=== PATIENT | female | born 1940 | race Caucasian/White ===

== ENCOUNTER → 2023-06-20 10:23 | Outpatient (CLI) | payer OTHER, MEDICARE, SELFPAY ==
[2023-06-20 12:06] LABS: Alanine Aminotransferase 38 IU/L (<35); Albumin 3.5 g/dL (3.5-5.0); Albumin Globulin Ratio 0.9 (1.0-2.8); Alkaline Phosphatase 90 U/L (38-126); Aspartate Aminotransferase 46 IU/L (14-36); BUN Creatinine Ratio 22.7 (6-22); Bilirubin Total 0.9 mg/dL (0.2-1.3); Blood Urea Nitrogen 17 mg/dL (7-17); Calcium 9.1 mg/dL (8.4-10.2); Carbon Dioxide 33 mmol/L (22-32); Chloride 99 mmol/L (98-107); Estimated Glomerular Filt Rate > 60 mL/min (>60); Globulin 3.7 g/dL (1.7-4.1); Glucose 107 mg/dL (80-110); HEMOLYSIS < 15 (0-50); Magnesium 1.8 mg/dL (1.6-2.3); Potassium 3.7 mmol/L (3.4-5.1); Sodium 136 mmol/L (137-145); Total Protein 7.2 g/dL (6.3-8.2)
[2023-06-20 12:23] LABS: Free T3, Triiodothyronine Free 1.73 pg/mL (2.77-5.27); Free T4, Direct Thyroxine 0.95 ng/dL (0.78-2.19)
[2023-06-20 12:37] LABS: Thyroid Stimulating Hormone 82.5 uIU/mL (0.47-4.68)
== END ==
PROVIDERS: PCP Nurse Practitioner; Referring Provider Nurse Practitioner; Visit Provider Nurse Practitioner
DX: E03.9 Hypothyroidism, unspecified (principal); I48.91 Unspecified atrial fibrillation; R00.2 Palpitations
CPT/HCPCS: 36415; 80053; 83735; 84439; 84443; 84481

== ENCOUNTER → 2023-08-18 07:50 | Outpatient (CLI) | payer MEDICARE, SELFPAY ==
[2023-08-18 09:14] LABS: Alanine Aminotransferase 17 IU/L (<35); Albumin 4.1 g/dL (3.5-5.0); Albumin Globulin Ratio 1.3 (1.0-2.8); Alkaline Phosphatase 69 U/L (38-126); Aspartate Aminotransferase 26 IU/L (14-36); BUN Creatinine Ratio 26.2 (6-22); Blood Urea Nitrogen 17 mg/dL (7-17); Calcium 9.6 mg/dL (8.4-10.2); Carbon Dioxide 32 mmol/L (22-32); Chloride 102 mmol/L (98-107); Estimated Glomerular Filt Rate > 60 mL/min (>60); Globulin 3.2 g/dL (1.7-4.1); Glucose 94 mg/dL (80-110); Potassium 3.6 mmol/L (3.4-5.1); Sodium 140 mmol/L (137-145); Total Protein 7.3 g/dL (6.3-8.2)
[2023-08-18 09:19] LABS: HEMOLYSIS < 15 (0-50)
[2023-08-18 09:43] LABS: Thyroid Stimulating Hormone 29.8 uIU/mL (0.47-4.68)
== END ==
LOC: LAB 07:50
PROVIDERS: PCP Nurse Practitioner; Referring Provider Nurse Practitioner; Visit Provider Nurse Practitioner
DX: E03.9 Hypothyroidism, unspecified (principal); I48.91 Unspecified atrial fibrillation; R79.89 Other specified abnormal findings of blood chemistry
CPT/HCPCS: 36415; 80053; 84443

== ENCOUNTER → 2023-10-12 11:29 | Outpatient (CLI) | payer MEDICARE, SELFPAY ==
[2023-10-12 13:39] LABS: Thyroid Stimulating Hormone 3.62 uIU/mL (0.47-4.68)
== END ==
PROVIDERS: PCP Nurse Practitioner; Referring Provider Nurse Practitioner; Visit Provider Nurse Practitioner
DX: E03.9 Hypothyroidism, unspecified (principal); I48.91 Unspecified atrial fibrillation
CPT/HCPCS: 36415; 84443

== ENCOUNTER → 2023-10-20 15:36 | Outpatient (CLI) | payer MEDICARE, SELFPAY ==
[2023-10-20 18:15] LABS: BUN Creatinine Ratio 35.4 (6-22); Blood Urea Nitrogen 23 mg/dL (7-17); Calcium 9.5 mg/dL (8.4-10.2); Carbon Dioxide 33 mmol/L (22-32); Chloride 105 mmol/L (98-107); Estimated Glomerular Filt Rate > 60 mL/min (>60); Glucose 93 mg/dL (80-110); HEMOLYSIS < 15 (0-50); Potassium 3.7 mmol/L (3.4-5.1); Sodium 140 mmol/L (137-145)
[2023-10-20 20:28] LABS: Digoxin 0.7 ng/mL (0.8-2.0)
== END ==
PROVIDERS: PCP Nurse Practitioner; Referring Provider Physician Assistant; Visit Provider Physician Assistant
DX: I48.91 Unspecified atrial fibrillation (principal)
CPT/HCPCS: 36415; 80048; 80162

== ENCOUNTER → 2023-11-30 14:00 | Outpatient (CLI) | payer MEDICARE, SELFPAY ==
--- NOTE | 2023-11-30 14:01 | DI.RAD.S_ITS ---
PROCEDURE: XR CERVICAL SPINE 2V OR 3V INDICATIONS: chronic right side pain TECHNIQUE: 3 view(s) of the cervical spine were acquired. COMPARISON: None. FINDINGS: Bones: No fractures or dislocations to the T1 level. The lateral masses of C1 appear intact on the odontoid view. No suspicious bony lesions. Reversal normal cervical lordosis. Disc space narrowing and hypertrophic facet joints in the mid cervical spine. Craniovertebral relationships are normal. Soft tissues: No prevertebral soft tissue swelling. 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 on 11/30/2023 at 19:18
== END ==
PROVIDERS: PCP Nurse Practitioner; Referring Provider Physician Assistant; Visit Provider Physician Assistant
DX: M50.20 Other cervical disc displacement, unspecified cervical region (principal); M47.812 Spondylosis without myelopathy or radiculopathy, cervical region
CPT/HCPCS: 72040

== ENCOUNTER → 2023-12-07 15:07 | Outpatient (CLI) | payer MEDICARE, SELFPAY ==
[2023-12-07 16:10] LABS: Alanine Aminotransferase 10 IU/L (<35); Albumin 3.9 g/dL (3.5-5.0); Albumin Globulin Ratio 1.3 (1.0-2.8); Alkaline Phosphatase 63 U/L (38-126); Aspartate Aminotransferase 22 IU/L (14-36); BUN Creatinine Ratio 26.9 (6-22); Bilirubin Total 0.7 mg/dL (0.2-1.3); Blood Urea Nitrogen 21 mg/dL (7-17); Calcium 8.6 mg/dL (8.4-10.2); Carbon Dioxide 28 mmol/L (22-32); Chloride 105 mmol/L (98-107); Estimated Glomerular Filt Rate > 60 mL/min (>60); Globulin 2.9 g/dL (1.7-4.1); Glucose 103 mg/dL (80-110); HEMOLYSIS < 15 (0-50); Potassium 3.9 mmol/L (3.4-5.1); Sodium 138 mmol/L (137-145); Total Protein 6.8 g/dL (6.3-8.2)
== END ==
PROVIDERS: PCP Nurse Practitioner; Referring Provider Physician Assistant; Visit Provider Physician Assistant
DX: R60.9 Edema, unspecified (principal); I10 Essential (primary) hypertension
CPT/HCPCS: 36415; 80053

== ENCOUNTER → 2024-01-05 14:55 | Outpatient (CLI) | payer MEDICARE, SELFPAY ==
--- NOTE | 2024-01-05 14:56 | DI.US.S_ITS ---
PROCEDURE: US ABDOMEN COMPLETE INDICATIONS: epigastric pain TECHNIQUE: Real-time scanning was performed of the abdominal and retroperitoneal organs, with image documentation. COMPARISON: None. FINDINGS: Liver: Liver is normal in size and homogeneous in echotexture. Gallbladder: No gallstones. No wall thickening. Biliary ducts: Intrahepatic bile ducts are non-dilated. Extrahepatic bile duct caliber measures 6 mm. Normal is 6-7 mm or less in diameter, or 10 mm or less post-cholecystectomy. Pancreas: Visualized portions of the pancreas are sonographically normal. Spleen: Spleen is normal in size and homogeneous in echotexture. Kidneys: Kidneys are normal in size and echotexture. Right kidney measures 10.6 cm long; left kidney measures 8.8 cm long. No hydronephrosis or nephrolithiasis. No solid masses. Aorta: Visualized aorta is normal in caliber at less than 3 cm. Iliacs: Proximal common iliac arteries are normal in caliber at less than 2.5 cm. IVC: Intrahepatic inferior vena cava is patent. Miscellaneous: Small pleural effusions. IMPRESSION: Small pleural effusions. Normal abdominal ultrasound otherwise. Dictated by: Zeus Barrett M.D. on 01/05/2024 at 16:40 Approved by: Zeus Barrett M.D. on 01/05/2024 at 16:41
== END ==
PROVIDERS: PCP Nurse Practitioner; Referring Provider Nurse Practitioner; Visit Provider Nurse Practitioner
DX: J90 Pleural effusion, not elsewhere classified (principal); R10.13 Epigastric pain
CPT/HCPCS: 76700

== ENCOUNTER → 2024-01-09 14:04 | Outpatient (CLI) | payer MEDICARE, SELFPAY ==
[2024-01-09 14:58] LABS: Add Manual Diff / Slide Review NO; Basophils Absolute Auto 100 /uL (0-100); Basophils Percent Auto 0.6 % (0-2); Eosinophils Absolute Auto 300 /uL (0-450); Eosinophils Percent Auto 2.8 % (2-4); Hematocrit 41.2 % (36-46); Hemoglobin 13.7 g/dL (12.0-16.0); Lymphocytes Absolute Auto 3400 /uL (1100-4500); Lymphocytes Percent Auto 32.3 % (25-40); Mean Corpuscular HGB Conc 33.2 % (30-36); Mean Corpuscular Hemoglobin 31.1 PG (26-34); Mean Corpuscular Volume 93.7 fL (80-100); Monocytes Absolute Auto 600 /uL (0-900); Monocytes Percent Auto 5.9 % (3-14); Neutrophils Absolute Auto 6200 /uL (1500-7000); Neutrophils Percent Auto 58.4 % (50-75); Platelet Count 259 X10^3/uL (150-400); Red Cell Distribution Width 13.7 % (11.6-14.8); White Blood Cell Count 10.6 X10^3/uL (4.5-11.0)
[2024-01-09 15:12] LABS: Alanine Aminotransferase 15 IU/L (<35); Albumin 4.3 g/dL (3.5-5.0); Albumin Globulin Ratio 1.3 (1.0-2.8); Alkaline Phosphatase 62 U/L (38-126); Aspartate Aminotransferase 25 IU/L (14-36); BUN Creatinine Ratio 28.2 (6-22); Bilirubin Total 1.3 mg/dL (0.2-1.3); Blood Urea Nitrogen 20 mg/dL (7-17); Calcium 9.5 mg/dL (8.4-10.2); Carbon Dioxide 33 mmol/L (22-32); Chloride 103 mmol/L (98-107); Estimated Glomerular Filt Rate > 60 mL/min (>60); Globulin 3.2 g/dL (1.7-4.1); Glucose 110 mg/dL (80-110); HEMOLYSIS < 15 (0-50); Potassium 4.2 mmol/L (3.4-5.1); Sodium 140 mmol/L (137-145); Total Protein 7.5 g/dL (6.3-8.2)
[2024-01-09 16:04] LABS: Thyroid Stimulating Hormone 3.75 uIU/mL (0.47-4.68)
== END ==
PROVIDERS: PCP Nurse Practitioner; Referring Provider Nurse Practitioner; Visit Provider Nurse Practitioner
DX: Z01.818 Encounter for other preprocedural examination (principal)
CPT/HCPCS: 36415; 80053; 84443; 85025

== ENCOUNTER 2024-01-28 18:43 | Emergency (ER) | payer MEDICARE, SELFPAY ==
[2024-01-28] VITALS (16 sets, daily range): BP systolic 155–197; BP diastolic 85–109; PULSE 69–90; RESP 16–33; TEMP 36.9; O2SAT 91–98
--- NOTE | 2024-01-28 18:43 | DI.CT.S_ITS ---
PROCEDURE: CT STROKE INDICATIONS: aphasia TECHNIQUE: Noncontrast 4.5 mm thick angled axial sections acquired from the foramen magnum to the vertex, with coronal reformats. For radiation dose reduction, the following was used: automated exposure control, adjustment of mA and/or kV according to patient size. COMPARISON: None. FINDINGS: Image quality: Diagnostic. CSF spaces: Basal cisterns are patent. No extra-axial fluid collections. The ventricles are symmetric in size and shape. Brain: No intracranial bleeds or masses. There is cerebral volume loss for age, with resultant ventricular and sulcal prominence. There are periventricular and deep white matter chronic small vessel ischemic changes. There is intracranial internal carotid artery atherosclerosis. Skull and face: Calvarium and visualized facial bones appear intact, without suspicious lesions. Sinuses: Visualized sinuses and mastoids are clear. IMPRESSION: 1. CT head without acute intracranial abnormalities or acute calvarial fractures. 2. Age-related senescent changes and sequela of chronic small vessel ischemic disease. Findings were discussed with Dr. Garcia at 7:10 p.m. This study fulfills neurological imaging criteria for inclusion or exclusion of acute stroke therapies based on available published neurological guidelines. Dictated by: Satinder Hernández M.D. on 01/28/2024 at 19:09 Approved by: Satinder Hernández M.D. on 01/28/2024 at 19:12
--- NOTE | 2024-01-28 18:43 | DI.CT.S_ITS ---
PROCEDURE: CT ANGIO HEAD AND NECK INDICATIONS: aphasia TECHNIQUE: After the administration of intravenous contrast, 1 mm thick sections acquired from the aortic arch through the [place]. 3-dimensional rlxnozp-ljaisqlbh-rbvguxnqwl (MIP) and/or volume rendering reformats were acquired of the central intracranial vasculature and neck separately. For radiation dose reduction, the following was used: automated exposure control, adjustment of mA and/or kV according to patient size. COMPARISON: None. FINDINGS: Image quality: Diagnostic. BRAIN: CSF spaces: Ventricles are normal in size and shape. Basal cisterns are patent. No extra-axial fluid collections. Brain: No midline shift. No intracranial masses. No suspicious enhancement. Garcia-white matter interface appears intact. Skull and face: Calvarium and facial bones appear intact, without suspicious lesions. Orbits appear normal. Sinuses: Sinuses and mastoids are clear. HEAD CT ANGIOGRAPHY: Anterior circulation: There are atherosclerotic calcifications of the intracranial segments of the internal carotid arteries. Intracranial internal carotid arteries appear patent without high-grade stenosis. There is flow/opacification within the paired anterior cerebral arteries. There is opacification within the middle cerebral arteries. The anterior communicating artery is seen. No aneurysms are seen. No occlusion. Posterior circulation: Atherosclerosis. Visualized portions of the vertebral arteries are patent and join to form a normal appearing basilar artery. No evidence for high-grade stenosis. No occlusions. There is opacification of the posterior cerebral arteries. No aneurysms are seen. NECK CT ANGIOGRAPHY: Carotid system: The great vessels demonstrate a conventional anatomy as they arise from the aortic arch. Atherosclerotic calcifications of the aortic arch are present. The origins of the common carotid arteries appear patent. The common carotid arteries appear patent throughout their visualized courses without high grade stenosis. Atherosclerotic calcifications at the carotid bifurcation. The left carotid bifurcation appears patent without high-grade stenosis. There is at least 75% stenosis at the origin of the right internal carotid artery. The remainder of the right internal carotid artery is patent. Symmetric enhancement of the internal carotid arteries. Posterior circulation: Atherosclerosis. Atherosclerotic calcifications at the origins of the vertebral arteries. The origins of the vertebral arteries both appear patent without hemodynamically significant stenosis. The more superior extracranial portions of both vertebral arteries also demonstrate normal courses and calibers. They join to form a normal appearing basilar artery. Soft tissues: Visualized neck soft tissues demonstrate no suspicious abnormalities. No suspicious adenopathy. Moderate right and trace left bilateral pleural effusion with associated compressive atelectasis. Bones: No suspicious bony lesions. No acute compression fractures. Moderate multilevel cervical spondylosis. IMPRESSION: 1. 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 No evidence for occlusion, dissection, or aneurysm. Remainder of the imaged intracranial and neck arterial vasculature appear patent without high-grade stenosis, occlusion, dissection, or aneurysm. 2. Atherosclerosis. 3. Moderate right and small left bilateral pleural effusions. If there is persistent or high clinical suspicion for acute cerebrovascular ischemia/stroke, more sensitive evaluation with brain MRI can be considered. Any quantitative measurements of stenosis were performed using NASCET criteria. Dictated by: Satinder Hernández M.D. on 01/28/2024 at 19:41 Approved by: Satinder Hernández M.D. on 01/28/2024 at 19:48
--- NOTE | 2024-01-28 18:52 | ED_ITS ---
HPI - General Adult General Chief complaint: Neuro Symptoms/Deficit Stated complaint: Diff. speaking Time Seen by Provider: 01/28/24 18:57 History of Present Illness HPI narrative: 83-year-old female with acute onset dysarthria within this last hour, per EMS apparently she was speaking on the phone with her [id number] when she suddenly started slurring her speech, this is approximately 1 hour ago 6:00 p.m. Harper time, per EMS she was unable to speak to them, but on arrival here she was able to speak with nursing, she takes Eliquis for atrial fibrillation. No injury or trauma or falls. No weakness or numbness to face arm or leg. Related Data Home Medications Medication Instructions Recorded Confirmed Rolaids or Tums See Rx Instructions .Route .COMPLEX 12/15/23 01/17/24 Previous Rx's Medication Instructions Recorded lactulose 20 gram/30 mL oral 20 g (30 mL) PO BID PRN 09/06/23 solution constipation #2,880 mL levothyroxine 75 mcg tablet 75 mcg PO DAILY #90 tabs 11/21/23 Imodium AD 2mg tabs See Rx Instructions .Route 12/15/23 .COMPLEX #1 cap Milk of Magnesia See Rx Instructions .Route 12/15/23 .COMPLEX #120 applic Mylanta Regular Strength See Rx Instructions .Route 12/15/23 .COMPLEX #120 applic Salon Pas Patches See Rx Instructions .Route 12/15/23 .COMPLEX #30 applic Tylenol 325mg See Rx Instructions .Route 12/15/23 .COMPLEX #100 caps furosemide 20 mg tablet 20 mg PO DAILY PRN fluid reten #30 12/15/23 tabs apixaban 2.5 mg tablet 2.5 mg PO BID #90 tabs 12/23/23 metoprolol succinate 200 mg 200 mg PO BID #90 tabs 12/23/23 tablet,extended release 24 hr Allergies Allergy/AdvReac Type Severity Reaction Status Date / Time ciprofloxacin [From Cipro] Allergy Severe cardiac Verified 01/17/24 08:39 arrest morphine Allergy Severe cardiac Verified 01/17/24 08:39 arrest lisinopril Allergy Mild Cough Verified 01/17/24 08:39 Review of Systems Review of Systems Narrative: per HPI Patient History Medical History (Updated 01/28/24 @ 20:40 by Manuel Garcia MD) Occipital neuralgia of right side Myofascial pain Neck Pain Cervical spondylosis Chronic anticoagulation History of benign spinal cord tumor Pacemaker Hypertension Hypothyroid Atrial fibrillation Social History Smoking Status: Former smoker Smoking Status: Former smoker Exam Narrative Exam Narrative: GENERAL: Well-developed patient, in mild distress. HEAD: Atraumatic. Normocephalic. EYES: Pupils equal round and reactive. Extraocular motions intact. No scleral icterus. No injection or drainage. ENT: Nose without bleeding, purulent drainage. Throat without erythema, tonsillar hypertrophy or exudate. Airway patent. NECK: Trachea midline. Non tender CARDIOVASCULAR: Regular rate and rhythm without murmurs, gallops, or rubs. RESPIRATORY: Clear to auscultation. Breath sounds equal bilaterally. No wheezes, rales, or rhonchi. GASTROINTESTINAL: Abdomen soft, non-tender, nondistended. EXTREMITIES: No edema or joint tenderness. BACK: Nontender without deformity or crepitance. No flank tenderness. NEURO: Severe dysarthria, looking around, pupils equal round reactive to light, able to participate with motor skills assessments, motor 5/5 upper extremities, motor 5/5 lower extremities, [id number] normal, [id number] normal, seems to have intact sensation to light touch. NIHSS =7, see separate score exam table. SKIN: No rash or erythema of visible areas Initial Vital Signs Initial Vital Signs: Vital Signs Pulse Rate 84 01/28/24 19:05 Pulse Oximetry 96 01/28/24 19:05 Scores NIH Stroke Scale Level of Conciousness: Alert, keenly responsive Open/close eyes, close hand: Performs both tasks correctly Best gaze horizontal: Normal Visual rodriguez: No visual loss Facial palsy: Partial paralysis, total or near total paralysis of lower face Left arm drift: No drift for full 10 sec Right arm drift: No drift for full 10 sec Left leg drift: No drift for full 5 sec Right leg drift: No drift for full 5 sec Limb ataxia: Absent Sensory on face/arms/legs: Normal, no sensory loss Best language: Mild to moderate, slurs some words Dysarthria: Mild to mod,some slurring Extinction or inattention: No abnormality Citation:: 1a=0, 1b=2, 1c=0, 2=0, 3=0, 4=1, 5a=0, 5b=0, 6a=0, 6b=0, 7=0, 8=0, 9=2, 10=2, 11=0. Total=7 Course Orders Ordered: ED Orders 01/28/24 20:45 COVID19 -Nasal RAPID Stat Vital Signs Vital signs: Vital Signs - 8 hr 01/28/24 21:01 01/28/24 21:02 01/28/24 21:02 Temperature Pulse Rate 90 87 Respiratory Rate 27 H 26 H Blood Pressure 172/101 H Pulse Oximetry 96 95 Oxygen Delivery Method 01/28/24 21:04 01/28/24 21:04 01/28/24 21:10 Temperature Pulse Rate 84 77 Respiratory Rate 16 21 Blood Pressure 169/102 H Pulse Oximetry 96 93 Oxygen Delivery Method 01/28/24 21:10 01/28/24 21:20 01/28/24 21:20 Temperature Pulse Rate 79 Respiratory Rate 19 Blood Pressure 167/98 H 157/95 H Pulse Oximetry 95 Oxygen Delivery Method 01/28/24 21:30 01/28/24 21:30 01/28/24 21:44 Temperature 98.5 F Pulse Rate 81 89 Respiratory Rate 20 18 Blood Pressure 162/97 H 167/104 H Pulse Oximetry 93 98 Oxygen Delivery Method Room Air Medical Decision Making Lab Data Lab results reviewed: Yes I reviewed the patient's lab results. 01/28/24 19:10 01/28/24 19:10 Labs: Lab Results 01/28/24 01/28/24 01/28/24 Range/Units 19:10 19:54 19:54 WBC 10.4 (4.5-11.0) X10^3/uL RBC 4.34 (4.0-5.2) X10^6/uL Hgb 13.5 (12.0-16.0) g/dL Hct 40.4 (36-46) % MCV 93.1 (80-100) fL MCH 31.2 (26-34) PG MCHC 33.5 (30-36) % RDW 13.0 (11.6-14.8) % Plt Count 175 (150-400) X10^3/uL Neut % (Auto) 57.0 (50-75) % Lymph % (Auto) 33.5 (25-40) % [place] % (Auto) 5.5 (3-14) % Eos % (Auto) 3.0 (2-4) % Baso % (Auto) 1.0 (0-2) % Neut # (Auto) 5900 (9010-2846) /uL Lymph # (Auto) 3500 (6754-8834) /uL [place] # (Auto) 600 (0-900) /uL Eos # (Auto) 300 (0-450) /uL Baso # (Auto) 100 (0-100) /uL PT 14.7 H (9.4-12.5) SECONDS INR 1.3 (0.9-1.3) APTT 34 (25.1-36.5) SECONDS Sodium 136 L (137-145) mmol/L Potassium 4.1 (3.4-5.1) mmol/L Chloride 103 (98-107) mmol/L Carbon Dioxide 23 (22-32) mmol/L BUN 18 H (7-17) mg/dL Creatinine 0.73 (0.52-1.04) mg/dL Estimated GFR > 60 (>60) mL/min BUN/Creatinine Ratio 24.7 H (6-22) Glucose 143 H (80-110) mg/dL Calcium 9.1 (8.4-10.2) mg/dL Total Bilirubin 1.1 (0.2-1.3) mg/dL AST 27 (14-36) IU/L ALT 20 (<35) IU/L Alkaline Phosphatase 73 (38-126) U/L Total Creatine Kinase 29 L (30-135) U/L Troponin I < 0.012 (0.01-0.034) ng/mL Total Protein 7.0 (6.3-8.2) g/dL Albumin 4.2 (3.5-5.0) g/dL Globulin 2.8 (1.7-4.1) g/dL Albumin/Globulin Ratio 1.5 (1.0-2.8) Urine Color Yellow Urine Appearance Clear Urine pH 6.0 Normal (4.5-8.0) Ur Specific Brady <=1.005 (1.000-1.035) Urine Protein Negative (Negative) Urine Glucose (UA) Negative (Negative) g/dL Urine Ketones Negative (NEGATIVE) Urine Occult Blood Trace-intact (Negative) Urine Nitrate Negative (Negative) Urine Bilirubin Negative (NEGATIVE) Urine Urobilinogen 0.2 (0.2) E.U./dL Ur Leukocyte Esterase Negative (NEGATIVE) Urine RBC 1-5/hpf (0-5/HPF) Urine WBC 0-1/hpf (0-5/HPF) Ur Squamous Epith Cells 0-1 /hpf (0-5/HPF) Urine Bacteria Occasional (0-1) (None) Ur Culture Indicated? Cult not indicated Vol Urine Centrifuged 10ml (spun) U Opiates 300ng/mL cut Negative (Negative) Ur Oxycodone Screen Negative (Negative) Urine Methadone Screen Negative (Negative) Ur Barbiturates Screen Negative (Negative) U Tricyclic Antidepress Negative (Negative) Ur Phencyclidine Scrn Negative (Negative) Ur Amphetamines Screen Negative (Negative) U Methamphetamines Scrn Negative (Negative) Ur MDMA Scrn (Ecstasy) Negative (Negative) U Benzodiazepines Scrn Negative (Negative) Urine Cocaine Screen Negative (Negative) U Marijuana (THC) Screen Negative (Negative) Urine Specific Brady Normal (Normal) Ethyl Alcohol < 10 ( - 10) mg/dL Ur Creatinine Normal (Normal) SARS-CoV-2 (PCR) (Negative) 01/28/24 Range/Units 20:45 WBC (4.5-11.0) X10^3/uL RBC (4.0-5.2) X10^6/uL Hgb (12.0-16.0) g/dL Hct (36-46) % MCV (80-100) fL MCH (26-34) PG MCHC (30-36) % RDW (11.6-14.8) % Plt Count (150-400) X10^3/uL Neut % (Auto) (50-75) % Lymph % (Auto) (25-40) % Licking % (Auto) (3-14) % Eos % (Auto) (2-4) % Baso % (Auto) (0-2) % Neut # (Auto) (9762-2815) /uL Lymph # (Auto) (8815-2142) /uL Licking # (Auto) (0-900) /uL Eos # (Auto) (0-450) /uL Baso # (Auto) (0-100) /uL PT (9.4-12.5) SECONDS INR (0.9-1.3) APTT (25.1-36.5) SECONDS Sodium (137-145) mmol/L Potassium (3.4-5.1) mmol/L Chloride (98-107) mmol/L Carbon Dioxide (22-32) mmol/L BUN (7-17) mg/dL Creatinine (0.52-1.04) mg/dL Estimated GFR (>60) mL/min BUN/Creatinine Ratio (6-22) Glucose (80-110) mg/dL Calcium (8.4-10.2) mg/dL Total Bilirubin (0.2-1.3) mg/dL AST (14-36) IU/L ALT (<35) IU/L Alkaline Phosphatase (38-126) U/L Total Creatine Kinase (30-135) U/L Troponin I (0.01-0.034) ng/mL Total Protein (6.3-8.2) g/dL Albumin (3.5-5.0) g/dL Globulin (1.7-4.1) g/dL Albumin/Globulin Ratio (1.0-2.8) Urine Color Urine Appearance Urine pH (4.5-8.0) Ur Specific Brady (1.000-1.035) Urine Protein (Negative) Urine Glucose (UA) (Negative) g/dL Urine Ketones (NEGATIVE) Urine Occult Blood (Negative) Urine Nitrate (Negative) Urine Bilirubin (NEGATIVE) Urine Urobilinogen (0.2) E.U./dL Ur Leukocyte Esterase (NEGATIVE) Urine RBC (0-5/HPF) Urine WBC (0-5/HPF) Ur Squamous Epith Cells (0-5/HPF) Urine Bacteria (None) Ur Culture Indicated? Vol Urine Centrifuged U Opiates 300ng/mL cut (Negative) Ur Oxycodone Screen (Negative) Urine Methadone Screen (Negative) Ur Barbiturates Screen (Negative) U Tricyclic Antidepress (Negative) Ur Phencyclidine Scrn (Negative) Ur Amphetamines Screen (Negative) U Methamphetamines Scrn (Negative) Ur MDMA Scrn (Ecstasy) (Negative) U Benzodiazepines Scrn (Negative) Urine Cocaine Screen (Negative) U Marijuana (THC) Screen (Negative) Urine Specific Brady (Normal) Ethyl Alcohol ( - 10) mg/dL Ur Creatinine (Normal) SARS-CoV-2 (PCR) Negative (Negative) Point of Care Testing Glucose POC 133 Urine Dip Bedside Urine Glucose Negative Bedside Urine Bilirubin - Negative Bedside Urine Ketone - Negative Urine Specific Brady 1.005 Bedside Urine Occult Blood - Negative Bedside Urine pH 6.0 Bedside Urine Protein - Negative Bedside Urine Urobilinogen - Negative Bedside Urine Nitrite - Negative Bedside Urine Leukocytes - Negative Esterase Point of care testing: Point of Care Testing Glucose POC 133 Urine Dip Bedside Urine Glucose Negative Bedside Urine Bilirubin - Negative Bedside Urine Ketone - Negative Urine Specific Brady 1.005 Bedside Urine Occult Blood - Negative Bedside Urine pH 6.0 Bedside Urine Protein - Negative Bedside Urine Urobilinogen - Negative Bedside Urine Nitrite - Negative Bedside Urine Leukocytes - Negative Esterase Imaging Data CT scan - head: Radiologist's Impression: [address] [address] [address] Scan Report Signed Patient: Radha Santiago MR#: [id number] : 1940 Acct:[id number] Age/Sex: 83 / F Date of Service: 01/28/24 Loc: ED Accession Number: [id number] Procedure: CT Stroke Ordering Provider: Manuel Garcia MD PROCEDURE: CT STROKE INDICATIONS: aphasia TECHNIQUE: Noncontrast 4.5 mm thick angled axial sections acquired from the foramen magnum to the vertex, with coronal reformats. For radiation dose reduction, the following was used: automated exposure control, adjustment of mA and/or kV according to patient size. COMPARISON: None. FINDINGS: Image quality: Diagnostic. CSF spaces: Basal cisterns are patent. No extra-axial fluid collections. The ventricles are symmetric in size and shape. Brain: No intracranial bleeds or masses. There is cerebral volume loss for age, with resultant ventricular and sulcal prominence. There are periventricular and deep white matter chronic small vessel ischemic changes. There is intracranial internal carotid artery atherosclerosis. Skull and face: Calvarium and visualized facial bones appear intact, without suspicious lesions. Sinuses: Visualized sinuses and mastoids are clear. IMPRESSION: 1. CT head without acute intracranial abnormalities or acute calvarial fractures. 2. Age-related senescent changes and sequela of chronic small vessel ischemic disease. Findings were discussed with Dr. Garcia at 7:10 p.m. This study fulfills neurological imaging criteria for inclusion or exclusion of acute stroke therapies based on available published neurological guidelines. Dictated by: Satinder Hernández M.D. on 01/28/2024 at 19:09 Approved by: Satinder Hernández M.D. on 01/28/2024 at 19:12 CTA Head and Neck: Radiologist's Impression: [address] [address] [address] Scan Report Signed Patient: Radha Santiago MR#: [id number] : 1940 Acct:[id number] Age/Sex: 83 / F Date of Service: 01/28/24 Loc: ED Accession Number: [id number] Procedure: CT Stroke Ordering Provider: Manuel Garcia MD PROCEDURE: CT STROKE INDICATIONS: aphasia TECHNIQUE: Noncontrast 4.5 mm thick angled axial sections acquired from the foramen magnum to the vertex, with coronal reformats. For radiation dose reduction, the following was used: automated exposure control, adjustment of mA and/or kV according to patient size. COMPARISON: None. FINDINGS: Image quality: Diagnostic. CSF spaces: Basal cisterns are patent. No extra-axial fluid collections. The ventricles are symmetric in size and shape. Brain: No intracranial bleeds or masses. There is cerebral volume loss for age, with resultant ventricular and sulcal prominence. There are periventricular and deep white matter chronic small vessel ischemic changes. There is intracranial internal carotid artery atherosclerosis. Skull and face: Calvarium and visualized facial bones appear intact, without suspicious lesions. Sinuses: Visualized sinuses and mastoids are clear. IMPRESSION: 1. CT head without acute intracranial abnormalities or acute calvarial fractures. 2. Age-related senescent changes and sequela of chronic small vessel ischemic disease. Findings were discussed with Dr. Garcia at 7:10 p.m. This study fulfills neurological imaging criteria for inclusion or exclusion of acute stroke therapies based on available published neurological guidelines. Dictated by: Satinder Hernández M.D. on 01/28/2024 at 19:09 Approved by: Satinder Hernández M.D. on 01/28/2024 at 19:12 CTA Head/Neck addendum: Radiologist's Impression: [address] [address] [address] Scan Report Signed Patient: Jaci Penn MR#: [id number] : 12/23/1935 Acct:[id number] Age/Sex: 88 / F Date of Service: 01/28/24 Loc: ED Accession Number: [id number] Procedure: CT angio chest abdomen pelvis Ordering Provider: Manuel Garcia MD PROCEDURE: CT ANGIO CHEST ABDOMEN PELVIS INDICATIONS: chest pain, flank pain, Ddimer positive TECHNIQUE: Precontrast 5 mm thick sections acquired from the lung apices to the iliac crests. After the administration of intravenous contrast, 2.5 mm thick sections again acquired from the lung apices to the iliac crests. Maximum intensity projection (MIP) oblique sagittal and coronal reformats were then acquired. For radiation dose reduction, the following was used: automated exposure control. COMPARISON: [facility], CT, CT ABDOMEN PELVIS W CON, 05/10/2023, 12:20. FINDINGS: Image quality: Diagnostic. AORTA: No aortic aneurysm. No acute aortic syndrome. CHEST: Lower Neck: No enlarged lymph nodes. Thyroid: There are bilateral thyroid nodules inferiorly, greater in size on the left than the right, of uncertain etiology and clinical significance. Axillae: No enlarged lymph nodes. Chest Wall: Unremarkable. Lungs and Pleura: No pneumothorax or pleural effusions. No consolidation or suspicious nodules. Heart: Heart size is normal. No pericardial effusion. Thoracic Vessels: Pulmonary arteries demonstrate normal size. Mediastinum and Nadja: No enlarged lymph nodes. Esophagus: No wall thickening. No hiatal hernia. ABDOMEN: Liver: No solid mass. Scattered previously present simple appearing hepatic cysts. Gallbladder: No radiopaque gallstones or wall thickening. Biliary ducts: No biliary dilation. Pancreas: No ductal dilation. Spleen: Size is within normal limits. Adrenal Glands: No adrenal nodules. Kidneys and Ureters: No hydronephrosis. No solid mass. No complex renal cystic lesion which requires follow up. There is a large exophytic left renal cortical cyst and several additional small cortical cysts. Stomach and Bowel: Normal colonic caliber, without significant wall thickening. Peritoneum: No abnormal intraperitoneal fluid. No free air. Ventral Wall: No hernia. Abdominal Nodes: No retroperitoneal or mesenteric adenopathy by size criteria. Vessels: Inferior vena cava is normal in size. PELVIS: Pelvic Organs: Unremarkable. Bladder: Unremarkable. Pelvic Nodes: No enlarged lymph nodes. Miscellaneous: No inguinal hernias are seen. Bones: Unremarkable. IMPRESSION: No arterial/aortic abnormality found beyond mild atherosclerotic calcific plaquing. Bilateral lower thyroid hypodensities larger on the left than right, relatively poorly visualized but likely representing solid nodules. Follow-up thyroid ultrasound is recommended. Through the chest abdomen and pelvis no acute disease is seen. No pulmonary embolus found during scanning through the chest. Dictated by: Yasir Augustin M.D. on 01/28/2024 at 20:28 Approved by: Yasir Augutsin M.D. on 01/28/2024 at 20:38 ECG Data Attestation: I personally reviewed and interpreted this ECG as follows: Interpretation: Normal sinus rhythm with rate of 76, no obvious ST segment elevation or depression changes. PVC noted. NV 188, QRS 80, QTC 416. MDM Narrative Medical decision making narrative: 83-year-old female with dysarthria acute onset a proximally 1 hour ago, arrival by EMS, glucose 130s in the field, initially not speaking, then able to speak, still quite slurred in her speech, able to articulate that she does take Eliquis anticoagulation for atrial fibrillation, no injuries or trauma. CT head noncontrast study ordered, along with CT angiogram head and neck vessels on arrival. EKG and labs pending. Keep NPO for now. 1914, phone call from Dr. [facility], verbal report CT head noncontrast study negative for acute changes. He has yet to read the CT angio head/neck studies. Patient takes Eliquis anticoagulation, not a thrombolytic candidate, however she could be interventional candidate, we will consult with Neurology as she is improving some but still quite dysarthric. 1919, case discussed with [facility] Dr. Lopez, who will review images, and who will consult. Patient confirms with yes his and knows that she is still taking the Eliquis medication, last dose was this morning, has not had any this afternoon/evening so far. CTA study shows 75% occlusion right ICA, see radiologist's report. 1949, phone call from Dr. Lopez of /[facility] Neurology, he and his attending have concerns about the Left M2 region, and he requests that I speak with the Radiology here. Relayed my score an IHSS 7, nursing gave score of 8 (nursing felt there was a more severe right-sided facial droop that I did) 2019, voicemail message left with Radiology, then call back from Radiology, case discussed again with Dr. Hernández, relayed Neurology concern about the left M2 region, he will further review. 2029, call back from [facility]/ Neurology Dr. Gonzalez, who reviewed images with neuroradiology at their facility, concern for left-sided occlusion, recommend transfer for possible thrombectomy. Patient informed, agrees with transfer 2036, call back from Dr. Lopez, accepts patient for transfer ED [facility], requests patient lay flat, requests normal saline at 75 cc/hour maintenance fluids. Keep NPO callback from Dr Hernández, agrees there is suspected occlusion along M2 distal segment 2039, family, here, pt accepted for transfer, dia send by air ambulance for more timely interfacility transfer given ongoing neuro symptoms Critical Care Time Critical Care Time Critical Care Time: Yes Total Critical Care Time: 45 Attestation: The high probability of a clinically significant, sudden or life threatening deterioration of the [cerebrovascular, cardio pulmonary, neurological] system(s) required my full and direct attention, intervention and personal management. The aggregate critical care time was [35] minutes. This time is in addition to time spent performing reported procedures but includes the following: [x] Data Review and interpretation [x] Patient assessment and monitoring of vital signs [x] Documentation [x] Medication orders and management Discharge Plan Departure Patient Disposition: [facility] Clinical Impression: Dysarthria, Stroke, Stenosis of right internal carotid artery, History of atrial fibrillation, Occlusion of left middle cerebral artery Prescriptions: No Action lactulose 20 gram/30 mL solution 20 g PO BID PRN (Reason: constipation) Qty: 2880 3RF Rx Instructions: Constipation levothyroxine 75 mcg tablet 75 mcg PO DAILY Qty: 90 3RF Rx Instructions: Due for TSH in 2-3 months metoprolol succinate 200 mg tablet extended release 24 hr 200 mg PO BID Qty: 90 3RF apixaban 2.5 mg tablet 2.5 mg PO BID Qty: 90 3RF furosemide 20 mg tablet 20 mg PO DAILY PRN (Reason: fluid reten) Qty: 30 0RF Rx Instructions: Use as needed for fluid retention Salon Pas Patches See Rx Instructions .ROUTE .COMPLEX Qty: 30 3RF Rx Instructions: Apply patch daily to most painful area x12 hours; Tylenol 325mg See Rx Instructions .ROUTE .COMPLEX Qty: 100 0RF Rx Instructions: Take 2 tabs by mouth every 4 hours as needed for fever over 100 degrees or for pain, not to exceed 6 tabs in 24 hours.; Imodium AD 2mg tabs See Rx Instructions .ROUTE .COMPLEX Qty: 1 0RF Rx Instructions: Take 2 caps by mouth initially then 1 cap after each loose stool until diarrhea is controlled, but not to exceed more than 4 caps in 24 hours; Mylanta Regular Strength See Rx Instructions .ROUTE .COMPLEX Qty: 120 0RF Rx Instructions: t tsp by mouth (20mL/cc) every 4 hours as needed for stomach upset not to exceed 24 tsp (120mL/cc) in 24 hours; Milk of Magnesia See Rx Instructions .ROUTE .COMPLEX Qty: 120 0RF Rx Instructions: Take 2 Tbs by mouth (30mL/cc) every day a needed for constipation NTE 2 Tbs (30mL/cc) in 24 hours. Encouraged a full glass (8oz) of liquid with each dose.; Rolaids or Tums See Rx Instructions .ROUTE .COMPLEX Rx Instructions: Take at onset of epigastric pain per package instructions as needed.; Referrals: Danyell Ledbetter ARNP [Primary Care Provider] -
[2024-01-28 19:20] LABS: Add Manual Diff / Slide Review NO; Basophils Absolute Auto 100 /uL (0-100); Eosinophils Absolute Auto 300 /uL (0-450); Hematocrit 40.4 % (36-46); Hemoglobin 13.5 g/dL (12.0-16.0); Lymphocytes Absolute Auto 3500 /uL (1100-4500); Lymphocytes Percent Auto 33.5 % (25-40); Mean Corpuscular HGB Conc 33.5 % (30-36); Mean Corpuscular Hemoglobin 31.2 PG (26-34); Mean Corpuscular Volume 93.1 fL (80-100); Monocytes Absolute Auto 600 /uL (0-900); Monocytes Percent Auto 5.5 % (3-14); Neutrophils Absolute Auto 5900 /uL (1500-7000); Platelet Count 175 X10^3/uL (150-400); Red Blood Cell Count 4.34 X10^6/uL (4.0-5.2); White Blood Cell Count 10.4 X10^3/uL (4.5-11.0)
[2024-01-28 19:27] LABS: INR 1.3 (0.9-1.3); Prothrombin Time 14.7 SECONDS (9.4-12.5)
[2024-01-28 19:29] LABS: PTT Partial Thromboplastin Tim 34 SECONDS (25.1-36.5)
[2024-01-28 19:32] LABS: Alanine Aminotransferase 20 IU/L (<35); Albumin 4.2 g/dL (3.5-5.0); Albumin Globulin Ratio 1.5 (1.0-2.8); Alkaline Phosphatase 73 U/L (38-126); Aspartate Aminotransferase 27 IU/L (14-36); BUN Creatinine Ratio 24.7 (6-22); Bilirubin Total 1.1 mg/dL (0.2-1.3); Blood Urea Nitrogen 18 mg/dL (7-17); Calcium 9.1 mg/dL (8.4-10.2); Carbon Dioxide 23 mmol/L (22-32); Chloride 103 mmol/L (98-107); Creatine Kinase 29 U/L (30-135); Estimated Glomerular Filt Rate > 60 mL/min (>60); Ethanol (ETOH) < 10 mg/dL; Globulin 2.8 g/dL (1.7-4.1); Glucose 143 mg/dL (80-110); HEMOLYSIS 16 (0-50); Potassium 4.1 mmol/L (3.4-5.1); Sodium 136 mmol/L (137-145)
--- NOTE | 2024-01-28 19:37 | EKG_ITS ---
[address] [address] Test Date: 2024-01-28 Pat Name: Radha Santiago Department: Room: Gender: Female Pastoral Worker: [facility] : 1940 Requested By: Order Number: [id number] Reading MD: Naveen Perla Measurements Intervals [place] Rate: 76 P: 82 ME: 188 QRS: -7 QRSD: 80 T: 117 QT: 370 QTc: 416 Interpretive Statements Sinus rhythm with occasional premature ventricular complexes Possible Anterior infarct , age undetermined T wave abnormality, consider lateral ischemia Electronically Signed On 01-29-2024 8:23:22 PDT by Naveen Perla
[2024-01-28 19:43] LABS: Troponin I < 0.012 ng/mL (0.01-0.034)
[2024-01-28 20:16] LABS: Appearance Urine UA CLEAR; Bilirubin Urine UA NEGATIVE (NEGATIVE); Color Urine UA YELLOW; Glucose Urine UA NEGATIVE (Negative); Ketones Urine UA NEGATIVE (NEGATIVE); Leukocyte Esterase Urine UA NEGATIVE (NEGATIVE); Nitrite Urine UA NEGATIVE (Negative); Occult Blood Urine UA TRACE-INTACT (Negative); Protein Urine UA NEGATIVE (Negative); Specific Gravity Urine UA <=1.005 (1.000-1.035); Urobilinogen Urine UA 0.2 E.U./dL (0.2)
[2024-01-28 20:24] LABS: Ur Creatinine Normal (Normal); Ur Specific Gravity Normal (Normal); Urine Amphetamines Negative (Negative); Urine Barbiturates Negative (Negative); Urine Benzodiazepines Negative (Negative); Urine Cocaine Negative (Negative); Urine MDMA Negative (Negative); Urine Methadone Negative (Negative); Urine Methamphetamines Negative (Negative); Urine Opiates Negative (Negative); Urine Oxycodone Negative (Negative); Urine Phencyclidine Negative (Negative); Urine THC Negative (Negative); Urine Tricyclic Antidepressant Negative (Negative); Urine pH Normal (Normal)
[2024-01-28 20:27] LABS: Bacteria Urine Occasional (0-1); Culture Indicated Urine Cult Not Indicated; RBC Urine 1-5/HPF (0-5/HPF); Squamous Epithelial Cell Urine 0-1 /HPF (0-5/HPF); Urine Volume 10mL (spun); WBC Urine 0-1/HPF (0-5/HPF)
--- NOTE | 2024-01-28 20:45 | PC.NURSE ---
Dr Abraham requesting staff to place pt flat in bed and start IVF NS at 75 mL/hr, Pt layed flat and fluids started.
[2024-01-28 21:07] LABS: COVID19 -Nasal RAPID Negative (Negative)
== END 2024-01-28 21:45 | disposition short-term general hospital (02) ==
PROVIDERS: Emergency Provider Emergency Medicine; PCP Nurse Practitioner
DX: I65.21 Occlusion and stenosis of right carotid artery (principal); I66.02 Occlusion and stenosis of left middle cerebral artery; I63.9 Cerebral infarction, unspecified; R47.1 Dysarthria and anarthria; R29.707 NIHSS score 7; R07.9 Chest pain, unspecified; R79.89 Other specified abnormal findings of blood chemistry; Z79.01 Long term (current) use of anticoagulants; Z86.79 Personal history of other diseases of the circulatory system
CPT/HCPCS: 36415; 70450; 70496; 70498; 80053; 80305; 80320; 81001; 81003; 82550; 82962; 84484; 85025; 85610; 85730; 87635; 93005; 99284; 99285; Q9967

== ENCOUNTER → 2024-04-20 12:46 | Outpatient (CLI) | payer MEDICARE, SELFPAY ==
--- NOTE | 2024-04-20 12:48 | DI.RAD.S_ITS ---
PROCEDURE: XR WRIST LT MIN 3V INDICATIONS: LEFT WRIST PAIN TECHNIQUE: 3 views of the wrist were acquired. COMPARISON: None. FINDINGS: Bones: There is diffuse osteopenia. Severe osteoarthritic changes are noted throughout wrist joints. No definite acute fracture or dislocation. No suspicious bony lesions. Soft tissues: Diffuse soft tissue swelling around wrist joint is seen. No suspicious soft tissue calcifications. 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 No gross acute fracture or dislocation. Diffuse wrist soft tissue swelling. Dictated by: Dung Chacon M.D. on 04/20/2024 at 13:08 Approved by: Dung Chacon M.D. on 04/20/2024 at 13:09
== END ==
PROVIDERS: PCP Registered Nurse Diabetes Educator; Referring Provider Physical Medicine & Rehabilitation; Visit Provider Physical Medicine & Rehabilitation
DX: M19.032 Primary osteoarthritis, left wrist (principal); M85.832 Other specified disorders of bone density and structure, left forearm; M79.89 Other specified soft tissue disorders; M25.532 Pain in left wrist
CPT/HCPCS: 73110

== ENCOUNTER → 2024-09-12 16:10 | Outpatient (CLI) | payer MEDICARE, SELFPAY ==
[2024-09-12 16:36] LABS: Appearance Urine UA CLOUDY; Bilirubin Urine UA NEGATIVE (NEGATIVE); Color Urine UA YELLOW; Glucose Urine UA NEGATIVE (Negative); Ketones Urine UA TRACE (NEGATIVE); Leukocyte Esterase Urine UA 2+ (NEGATIVE); Nitrite Urine UA POSITIVE (Negative); Occult Blood Urine UA 2+ (Negative); Protein Urine UA TRACE (Negative); Specific Gravity Urine UA 1.025 (1.000-1.035)
[2024-09-12 16:41] LABS: Add Manual Diff / Slide Review NO; Basophils Absolute Auto 0 /uL (0-100); Basophils Percent Auto 0.5 % (0-2); Eosinophils Absolute Auto 200 /uL (0-450); Eosinophils Percent Auto 2.1 % (2-4); Hematocrit 35.7 % (36-46); Hemoglobin 11.8 g/dL (12.0-16.0); Lymphocytes Absolute Auto 2800 /uL (1100-4500); Lymphocytes Percent Auto 31.7 % (25-40); Mean Corpuscular HGB Conc 33.2 % (30-36); Mean Corpuscular Hemoglobin 28.4 PG (26-34); Mean Corpuscular Volume 85.6 fL (80-100); Monocytes Absolute Auto 700 /uL (0-900); Monocytes Percent Auto 7.5 % (3-14); Neutrophils Absolute Auto 5100 /uL (1500-7000); Neutrophils Percent Auto 58.2 % (50-75); Platelet Count 308 X10^3/uL (150-400); Red Blood Cell Count 4.17 X10^6/uL (4.0-5.2); Red Cell Distribution Width 14.3 % (11.6-14.8); White Blood Cell Count 8.8 X10^3/uL (4.5-11.0)
[2024-09-12 16:52] LABS: Bacteria Urine Many (>30); Culture Indicated Urine Specimen Cultured; RBC Urine 0-1/HPF (0-5/HPF); Squamous Epithelial Cell Urine 5-10 /HPF (0-5/HPF); Urine Volume 10mL (spun); WBC Urine 30-100/HPF (0-5/HPF)
[2024-09-12 16:58] LABS: Alanine Aminotransferase 11 IU/L (<35); Albumin 3.7 g/dL (3.5-5.0); Alkaline Phosphatase 95 U/L (38-126); Aspartate Aminotransferase 21 IU/L (14-36); BUN Creatinine Ratio 29.7 (6-22); Bilirubin Total 0.8 mg/dL (0.2-1.3); Blood Urea Nitrogen 30 mg/dL (7-17); Calcium 9.2 mg/dL (8.4-10.2); Carbon Dioxide 26 mmol/L (22-32); Chloride 106 mmol/L (98-107); Estimated Glomerular Filt Rate 55 mL/min (>60); Globulin 3.6 g/dL (1.7-4.1); Glucose 103 mg/dL (80-110); HEMOLYSIS < 15 (0-50); Potassium 4.5 mmol/L (3.4-5.1); Sodium 140 mmol/L (137-145); Total Protein 7.3 g/dL (6.3-8.2)
[2024-09-12 17:03] LABS: NT-proBNP (BNP-Adult 18+) 5050 pg/mL (<450)
[2024-09-12 17:29] LABS: TSH w/ Reflex to FT4 3.47 uIU/mL (0.47-4.68)
--- NOTE | 2024-09-12 17:29 | DI.RAD.S_ITS ---
PROCEDURE: XR KNEE LT 3V INDICATIONS: eval L knee pain TECHNIQUE: 3 views of the knee were acquired. COMPARISON: None. FINDINGS: Bones: There are no osseous abnormalities. Joints: The tibialfemoral and patellofemoral joints show severe degeneration with small effusion. Soft tissues: Normal IMPRESSION: Severe patellofemoral tibiofemoral degeneration Dictated by: Shamir Alvarez M.D. on 09/13/2024 at 11:58 Approved by: Shamir Alvarez M.D. on 09/13/2024 at 11:59
== END ==
PROVIDERS: PCP Registered Nurse Diabetes Educator; Referring Provider Registered Nurse Diabetes Educator; Visit Provider Registered Nurse Diabetes Educator
DX: E03.9 Hypothyroidism, unspecified (principal); I10 Essential (primary) hypertension; I48.91 Unspecified atrial fibrillation; R60.0 Localized edema; Z51.81 Encounter for therapeutic drug level monitoring; M25.562 Pain in left knee
CPT/HCPCS: 36415; 73562; 80053; 81001; 83880; 84443; 85025; 87077; 87086; 87186

== ENCOUNTER 2024-12-27 07:35 | Emergency (ER) | payer MEDICARE, SELFPAY ==
[2024-12-27 07:37] VITALS: O2SAT 95
[2024-12-27 07:38] VITALS: BP 167/79; PULSE 91; O2SAT 94
[2024-12-27 07:41] VITALS: BP 167/79; PULSE 86; RESP 16; TEMP 36.7; O2SAT 93; BMI 21.9
--- NOTE | 2024-12-27 07:46 | ED.EXTPRO ---
HPI - Extremity Problem General Chief complaint: Extremity Problem,Nontraumatic Stated complaint: Leg Pain Time Seen by Provider: 12/27/24 07:37 Source: patient and EMS Mode of arrival: EMS History of Present Illness HPI Narrative: 83-year-old female presents with atrial fibrillation on Eliquis chronic left knee pain with known history of severe patellofemoral and tibiofemoral degeneration for which she takes Tylenol and topical diclofenac which has not helped much brought in via EMS today for re-evaluation she comes from assisted living facility. Patient denies fever, chills, chest pain, shortness breath, leg swelling. Otherwise no other complaints of 14 point review of systems. Related Data Home Medications ?Medication ?Instructions ?Recorded ?Confirmed diltiazem HCl 120 mg mg PO DAILY 08/21/24 11/07/24 capsule,extended release 24 hr Previous Rx's ?Medication ?Instructions ?Recorded levothyroxine 75 mcg tablet 75 mcg PO DAILY #90 tabs 04/13/24 losartan 25 mg tablet 25 mg PO DAILY #90 tabs 05/16/24 acetaminophen 325 mg capsule 325 mg PO Q4H PRN fever or pain 10/30/24 #270 caps apixaban 2.5 mg tablet 2.5 mg PO BID #180 tabs 11/08/24 metoprolol succinate 200 mg 200 mg PO BID #180 tabs 11/14/24 tablet,extended release 24 hr diclofenac sodium 1 % topical gel 2 g topical QID PRN arthritis pain 12/12/24 (Voltaren Arthritis Pain) #100 grams Allergies Allergy/AdvReac Type Severity Reaction Status Date / Time ciprofloxacin (From Cipro) Allergy Severe cardiac Verified 12/27/24 07:42 arrest morphine Allergy Severe cardiac Verified 12/27/24 07:42 arrest lisinopril Allergy Mild Cough Verified 12/27/24 07:42 Review of Systems Review of Systems ROS Unobtainable: All systems reviewed & are unremarkable except as noted in HPI and below Patient History Medical History (Updated 12/27/24 @ 09:38 by Shamir Palacio, ) Primary osteoarthritis of left knee Degenerative joint disease of wrist Ganglion cyst of dorsum of left wrist Chronic anticoagulation Expressive aphasia Lower extremity weakness History of embolic stroke Occipital neuralgia of right side Myofascial pain Neck Pain Cervical spondylosis History of benign spinal cord tumor Pacemaker Hypertension Hypothyroid Atrial fibrillation Surgical History History of embolectomy Social History Smoking Status: Never smoker Smoking Status: Never smoker Exam Narrative Exam Narrative: GENERAL: [83] year old patient appears stated age. Well-developed patient, in mild distress. HEAD: Atraumatic. Normocephalic. EYES: Pupils equal round and reactive. Extraocular motions intact. No scleral icterus. No injection or drainage. EXTREMITIES: L knee Moderate crepitus on exam with medial joint line tenderness on exam motor sensory intact +2 DP +2 PT cap refill less than 2 seconds BACK: Nontender without deformity or crepitance. No flank tenderness. NEURO: AOx3. SKIN: No rash or erythema of visible areas Initial Vital Signs Initial Vital Signs: Vital Signs Temperature 98.1 F 12/27/24 07:41 Pulse Rate 86 12/27/24 07:41 Respiratory Rate 16 12/27/24 07:41 Blood Pressure 167/79 H 12/27/24 07:41 Pulse Oximetry 93 12/27/24 07:41 Oxygen Delivery Method Room Air 12/27/24 07:41 Procedures [facility] [place] Procedure Name of Procedure: L knee steroid injection Side (if applicable): left Time out performed: Yes Technique/Description of procedure performed: Patient draped and prepped in a sterile fashion. Using anterolateral approach with a 22 1-1/2 gauge needle using a 5 cc syringe consisting of Kenalog 40 mg 1 mL and 1% lidocaine without epi 4 mL was injected with no complications. Patient tolerated procedure without any complications at this time. Patient tolerated procedure: Well and No complications Course Orders Ordered: ED Orders 12/27/24 07:46 XR knee LT 3V Stat Discontinued Medications Acetaminophen (Acetaminophen 325 Mg Tablet) 650 mg PO NOW ONE Stop: 12/27/24 07:47 Last Admin: 12/27/24 08:13 Dose: 650 mg Documented By: GIO Lidocaine HCl (Lidocaine 1% 20 Ml) 4 ml INJ INTRA-OP ONE Stop: 12/27/24 07:47 Last Admin: 12/27/24 08:14 Dose: 4 ml Documented By: GIO Triamcinolone (Triamcinolone 40 Mg/Ml Vial) 40 mg INJ NOW ONE Stop: 12/27/24 07:47 Last Admin: 12/27/24 08:14 Dose: 40 mg Documented By: GIO Vital Signs Vital signs: Vital Signs - 8 hr 12/27/24 07:41 Temperature 98.1 F Pulse Rate 86 Respiratory Rate 16 Blood Pressure 167/79 H Pulse Oximetry 93 Oxygen Delivery Method Room Air MDM - Extremity (Nontraumatic) Imaging Data Extremity x-ray #1: Radiologist's Impression: [address] [address] XRay Report Signed Patient: Radha Santiago MR#: [id number] : 1940 Acct:[id number] Age/Sex: 83 / F Date of Service: 12/27/24 Loc: ED Accession Number: [id number] Procedure: XR knee LT 3V Ordering Provider: Shamir Palacio D.O. PROCEDURE: XR KNEE LT 3V INDICATIONS: Left knee pain TECHNIQUE: 3 views of the knee were acquired. COMPARISON: [facility], , XR KNEE LT 3V, 09/12/2024, 17:31. FINDINGS: Large left knee joint effusion increased. Degenerative changes of the left knee with joint space narrowing and osteophytes in the medial, lateral and patellofemoral compartments Kellgren Davis grade 3 unchanged. Moderate vascular calcifications unchanged. No radiographic evidence of displaced fracture, dislocation or high attenuation soft tissue foreign body. IMPRESSION: Increased large left knee joint effusion. Follow-up is needed. Degenerative changes unchanged. No radiographic evidence fracture. If symptoms persist or worsen, or there is high clinical suspicion of acute abnormality, CT or MRI could be performed. Dictated by: Terell Gutierrez M.D. on 12/27/2024 at 9:10 Approved by: Terell Gutierrez M.D. on 12/27/2024 at 9:13 [facility] Narrative Medical decision making narrative: Vital signs, nurse triage note, medication list, previous ER visits, and all imaging modalities reviewed. Knee x-ray showed large left knee joint infusion and degenerative changes that are unchanged and no radiographic evidence of fracture. Patient received left knee steroid injection for which patient tolerated procedure with no complication. Patient will follow up with orthopedic doctor regarding left knee joint infusion to take Tylenol as needed for pain control. Differential diagnosis includes fracture, dislocation, arthritis, tendon, ligament, injury. Discharge Plan Departure Patient Disposition: Home Clinical Impression: Effusion of knee joint, left Instructions: DI for Knee Pain Activity Restrictions/Additional Instructions: Return with new or worsening symptoms. Follow up with the orthopedic doctor regarding left knee joint swelling. Prescriptions: No Action levothyroxine 75 mcg tablet 75 mcg PO DAILY Qty: 90 1RF losartan 25 mg tablet 25 mg PO DAILY Qty: 90 1RF acetaminophen 325 mg capsule 325 mg PO Q4H MDD 3000 mg PRN (Reason: fever or pain) Qty: 270 2RF Rx Instructions: Take 2 capsules by mouth every 4 hours for pain. Do not exceed 9 caps/ max 3000mg in 24 hours apixaban 2.5 mg tablet 2.5 mg PO BID Qty: 180 0RF metoprolol succinate 200 mg tablet extended release 24 hr 200 mg PO BID Qty: 180 0RF Rx Instructions: HOLD if BP under 100/60 or heart rate under 50 diclofenac sodium [Voltaren Arthritis Pain] 1 % gel 2 g topical QID PRN (Reason: arthritis pain) Qty: 100 0RF Rx Instructions: Apply 2 g to each affected area up to 4 times daily; max total body dose (all combined joints): 32 g/day. MONITOR FOR ABNORMAL BLEEDING diltiazem HCl 120 mg capsule,extended release 24hr PO DAILY Referrals: Chepe Wood ARNP [Primary Care Provider, Medical] Clive Arevalo MD [Physician, Orthopedic Surgery] Referral Note: IMPRESSION: Increased large left knee joint effusion. Follow-up is needed. Degenerative changes unchanged. No radiographic evidence fracture. Stand Alone Forms: Patient Portal/API
[2024-12-27] MEDS: ACETAMINOPHEN 325 MG TABLET 650 MG PO (08:13)
[2024-12-27] MEDS: LIDOCAINE 1% 20 ML 4 ML INJ (08:14)
[2024-12-27] MEDS: TRIAMCINOLONE 40 MG/ML VIAL INJ (08:14)
--- NOTE | 2024-12-27 09:48 | PC.NURSE ---
Estefani Valera updated per pt request
--- NOTE | 2024-12-27 10:25 | PC.NURSE ---
hx of arthritis. left knee swelling. no redness. pt reports the only thing that helps her pain are steroid injections.
[2024-12-27 10:26] VITALS: BP 165/82; PULSE 85; RESP 16; TEMP 36.7; O2SAT 96
--- NOTE | 2024-12-27 10:26 | PC.NURSE ---
Consulted w/ MD Palacio about home meds to help with pain; suggested 500mg acetaminophen q6h
== END 2024-12-27 10:27 | disposition home or self-care (01) ==
PROVIDERS: Emergency Provider Family Medicine; PCP Registered Nurse Diabetes Educator
DX: M25.462 Effusion, left knee (principal); Z79.01 Long term (current) use of anticoagulants
CPT/HCPCS: 20610; 73562; 99283

== ENCOUNTER → 2025-01-19 12:32 | Outpatient (CLI) | payer MEDICARE, SELFPAY ==
[2025-01-19 14:45] LABS: COVID-19 CEPHEID 4-PLEX PCR Negative (Negative); Influenza A - CEPHEID Flu A NEGATIVE (NEGATIVE); Influenza B - CEPHEID Flu B NEGATIVE (NEGATIVE)
== END ==
LOC: LAB 12:33
PROVIDERS: PCP Registered Nurse Diabetes Educator; Visit Provider Nurse Practitioner Family
DX: R05.1 Acute cough (principal)
CPT/HCPCS: 87637

== ENCOUNTER → 2025-01-19 12:54 | Outpatient (CLI) | payer MEDICARE, SELFPAY ==
--- NOTE | 2025-01-19 12:56 | DI.RAD.S_ITS ---
PROCEDURE: XR CHEST 2V INDICATIONS: Cough TECHNIQUE: 2 views of the chest were acquired. COMPARISON: None. FINDINGS: Surgical changes and devices: Pacemaker. Lungs and pleura: Cephalization of flow without rebecca pulmonary edema. No focal pulmonary infiltrate. No pleural effusions or pneumothorax. Mediastinum: Mediastinal contours are normal. Heart size is moderately enlarged. Bones and chest wall: No suspicious bony abnormalities. Soft tissues appear unremarkable. IMPRESSION: Moderately enlarged heart size with pulmonary venous congestion without rebecca pulmonary edema. Dictated by: Timothy Amanda M.D. on 01/20/2025 at 6:36 Approved by: Timothy Amanda M.D. on 01/20/2025 at 6:38
== END ==
PROVIDERS: PCP Registered Nurse Diabetes Educator; Referring Provider Registered Nurse Diabetes Educator; Visit Provider Nurse Practitioner Family
DX: I51.7 Cardiomegaly (principal); R05.1 Acute cough; R09.89 Other specified symptoms and signs involving the circulatory and respiratory systems; Z95.0 Presence of cardiac pacemaker
CPT/HCPCS: 71046; 87637

== ENCOUNTER → 2025-01-31 09:28 | Outpatient (CLI) | payer MEDICARE, SELFPAY ==
[2025-01-31 10:01] LABS: Hematocrit 40.9 % (36-46); Hemoglobin 13.5 g/dL (12.0-16.0); Mean Corpuscular HGB Conc 33.1 % (30-36); Mean Corpuscular Hemoglobin 29.4 PG (26-34); Mean Corpuscular Volume 88.7 fL (80-100); Platelet Count 290 X10^3/uL (150-400)
[2025-01-31 10:07] LABS: Hemoglobin A1C% w Est Avg Glu 6.0 % (4.0-6.0)
[2025-01-31 10:20] LABS: HEMOLYSIS < 15 (0-50); Iron 111 ug/dL (37-170)
[2025-01-31 10:26] LABS: Blood Urea Nitrogen 22 mg/dL (7-17); Calcium 9.5 mg/dL (8.4-10.2); Carbon Dioxide 26 mmol/L (22-32); Chloride 105 mmol/L (98-107); Estimated Glomerular Filt Rate > 60 mL/min (>60); Glucose 95 mg/dL (70-99); HEMOLYSIS < 15 (0-50); Potassium 4.2 mmol/L (3.4-5.1); Sodium 140 mmol/L (137-145)
[2025-01-31 10:31] LABS: Percent Iron Saturation 31 % (15-50); Total Iron Binding Capacity 353 ug/dL (265-497); Transferrin 294 mg/dL (206-381)
[2025-01-31 10:57] LABS: Ferritin 85 ng/mL (11-264)
[2025-01-31 11:09] LABS: Vitamin B12 374 pg/mL (239-931)
== END ==
PROVIDERS: PCP Registered Nurse Diabetes Educator; Referring Provider Physician Assistant; Visit Provider Physician Assistant
DX: R73.01 Impaired fasting glucose (principal); D64.9 Anemia, unspecified; R94.4 Abnormal results of kidney function studies
CPT/HCPCS: 36415; 80048; 82607; 82728; 83036; 83540; 83550; 85027

== ENCOUNTER 2025-02-15 09:57 | Emergency (ER) | payer MEDICARE, SELFPAY ==
[2025-02-15 10:37] VITALS: BP 146/91; PULSE 90; RESP 16; TEMP 37; O2SAT 97; BMI 21.9
--- NOTE | 2025-02-15 11:19 | ED_ITS ---
<Statement entered by Shamir Palacio, DO - 02/15/25 18:22> Co-sign statement: I was available for consultation during this patient's emergency department visit. This chart is being signed by myself for administrative purposes only. I do not have direct contact with this patient during this visit. They were seen independently by the APC. HPI - Headache General Chief Complaint: Headache Stated Complaint: Sent from [facility] ,Severe headache x 5 days Time Seen by Provider: 02/15/25 10:03 History of Present Illness HPI Narrative: Ms. Santiago is a very pleasant 84-year-old female with a past medical history of brain tumor removal 6 years ago, prior embolic stroke s/p embolectomy, HTN, AFib on Eliquis, CAD, pacemaker, hypothyroidism who presents to the emergency department with her daughter after being sent by the walk-in clinic for a headache x6 days. Patient states that she started having some left-sided neck pain a little over a week ago that has since turned into a left-sided headache. Describes the pain as constant and stabbing in nature on the back left side of the head. Denies a history of headaches except for when she had the brain tumor. There was no trauma that caused the headache. Headache has been getting gradually worse. Headache is not associated with any other symptoms such as visual disturbance, numbness, tingling, nausea, vomiting, fevers, chills. Patient does have dysarthria because of her prior stroke and some problems with her memory. She also developed a red itchy rash on her left arm 3 days ago, was concerned for shingles, but walk-in clinic provider assessed her and prescribed triamcinolone as it appears more to be an allergic rash at this time. Patient ambulates with a walker at baseline. Reports recently completing a course of Augmentin for sinusitis. Denies any falls. Denies chest pain, shortness of breath, abdominal pain. After reviewing patient's records, she does have a well documented history of occipital neuralgia, cervical spondylosis, neck pain and myofascial pain on the RIGHT side in the past with similar symptoms of pain radiating from the neck to the scalp in the arm. She was previously treated with trigger point injections. Related Data Home Medications ?Medication ?Instructions ?Recorded ?Confirmed diltiazem HCl 120 mg mg PO DAILY 08/21/24 5 capsule,extended release 24 hr Previous Rx's ?Medication ?Instructions ?Recorded levothyroxine 75 mcg tablet 75 mcg PO DAILY #90 tabs 1 losartan 25 mg tablet 25 mg PO DAILY #90 tabs 01/01 acetaminophen 325 mg capsule 325 mg PO Q4H PRN fever o r pain 10/30/24 #270 caps diclofenac sodium 1 % topical gel 2 g topical QID PRN arthritis pain 01/10/25 (Voltaren Arthritis Pain) #100 grams apixaban 2.5 mg tablet 2.5 mg PO BID #180 tabs 01/08 11/02 metoprolol succinate 200 mg 200 mg PO BID #180 tabs tablet,extended release 24 hr lidocaine 5 % topical patch 1 patch topical DAILY PRN pain #30 02/15/25 (Lidoderm) ea methocarbamol 500 mg tablet 500 mg PO BEDTIME PRN musc le spasm 02/15/25 #5 tabs ondansetron 4 mg disintegrating 4 mg PO Q8H PRN nausea , headahce 02/15/25 tablet #14 tabs triamcinolone acetonide 0.1 % 1 applic topical BID #15 grams 02/15/25 topical cream Allergies Allergy/AdvReac Type Severity Reaction Status Date / Time ciprofloxacin (From Cipro) Allergy Severe cardiac Verified 02/15/25 10:37 arrest morphine Allergy Severe cardiac Verified 02/15/25 10:37 arrest lisinopril Allergy Mild Cough Verified 02/15/25 10:37 Review of Systems Review of Systems ROS Unobtainable: All systems reviewed & are unremarkable except as noted in HPI and below Patient History Medical History (Updated 02/15/25 @ 12:37 by Catherine Amaro PA-C) Primary osteoarthritis of left knee Degenerative joint disease of wrist Ganglion cyst of dorsum of left wrist Chronic anticoagulation Expressive aphasia Lower extremity weakness History of embolic stroke Occipital neuralgia of right side Myofascial pain Neck Pain Cervical spondylosis History of benign spinal cord tumor Pacemaker Hypertension Hypothyroid Atrial fibrillation Surgical History History of embolectomy Social History Smoking Status: Former smoker Smoking Status: Former smoker tobacco type: cigarettes Exam Narrative Exam Narrative: GENERAL: 84 year old patient appears stated age. Well-developed patient, in no acute distress. HEAD: Atraumatic. Normocephalic. No tenderness to palpation of bilateral temples. No scalp rashes or lesions visualized. EYES: PERRL. Extraocular motions intact. No scleral icterus. No injection or drainage. ENT: Normal ear canals and TMs bilaterally. Nose without bleeding, purulent drainage. Throat without erythema, tonsillar hypertrophy or exudate. Airway patent. NECK: Trachea midline. No midline cervical tenderness. There is tenderness to palpation of the left paraspinal cervical region. Negative Kernig and Brudzinski sign but there is pain reported on the left side of the neck with the range of motion. CARDIOVASCULAR: Regular rate and irregularly irregular rhythm RESPIRATORY: ?Nonlabored respirations. ?Speaking in clear, full sentences. ?Clear to auscultation. Breath sounds equal bilaterally. No wheezes, rales, or rhonchi. ? GASTROINTESTINAL: Abdomen soft, non-tender, nondistended. EXTREMITIES: 1+ bilateral lower extremity edema BACK: No midline spinal tenderness. NEURO: AOx3. ?She is able to provide her own history with supplementation from her niece at the bedside. She does have chronic, reported baseline dysarthria. ?No gross facial asymmetry. Sensation intact to light touch throughout the upper and lower extremities Moves all 4 extremities appropriately, ambulates with walker. SKIN: Throughout the entire left arm there are few scattered raised erythematous lesions that are blanchable. No vesicles blisters or bullae. No petechiae. Initial Vital Signs Initial Vital Signs: Vital Signs Temperature 98.6 F 02/15/25 10:37 Pulse Rate 90 02/15/25 10:37 Respiratory Rate 16 02/15/25 10:37 Blood Pressure 146/91 H 02/15/25 10:37 Pulse Oximetry 97 02/15/25 10:37 Oxygen Delivery Method Room Air 02/15/25 10:37 Course Orders Ordered: ED Orders 02/15/25 11:35 CT cervical spine wo con Stat CT head/brain wo con Stat 02/15/25 11:50 Complete Blood Count AUTO DIFF Stat Comprehensive Metabolic Panel Stat PTT Partial Thromboplastin Marlon Stat Prothrombin Time INR Stat Discontinued Medications Acetaminophen (Ofirmev) 1,000 mg in 100 mls @ 400 mls/hr IV NOW ONE Stop: 02/15/25 11:48 Last Infusion: 02/15/25 12:35 Dose: Infused Documented By: Admin: 02/15/25 11:54 Dose: 400 mls/hr Documented By: PILI Sodium Chloride (Normal Saline 0.9%) 500 mls @ 1,000 mls/hr IV BOLUS ONE Stop: 02/15/25 12:03 Last Infusion: 02/15/25 12:36 Dose: Infused Documented By: Admin: 02/15/25 11:49 Dose: 1,000 mls/hr Documented By: PILI Lidocaine (Lidocaine 5% Patch) 1 each TOP NOW ONE Stop: 02/15/25 11:35 Last Admin: 02/15/25 11:48 Dose: 1 each Documented By: PILI Methocarbamol (Methocarbamol 500 Mg Tablet) 500 mg PO NOW ONE Stop: 02/15/25 12:26 Last Admin: 02/15/25 12:37 Dose: 500 mg Documented By: PILI Ondansetron HCl (Ondansetron 4 Mg/2 Ml Inj) 4 mg IV NOW ONE Stop: 02/15/25 11:35 Last Admin: 02/15/25 11:48 Dose: 4 mg Documented By: PILI Vital Signs Vital signs: Vital Signs - 8 hr 02/15/25 10:37 02/15/25 12:54 Temperature 98.6 F 98.2 F Pulse Rate 90 65 Respiratory Rate 16 16 Blood Pressure 146/91 H 135/72 Pulse Oximetry 97 96 Oxygen Delivery Method Room Air Room Air MDM - Headache Medical Records Attestation: I reviewed the patient's medical records. Medical records narrative: Prior pain management appointments with Dr. Naren Mcdonald for occipital neuralgia Lab Data 02/15/25 11:50 02/15/25 11:50 Labs: Lab Results 02/15/25 Range/Units 11:50 WBC 11.7 H (4.5-11.0) X10^3/uL RBC 4.53 (4.0-5.2) X10^6/uL Hgb 13.5 (12.0-16.0) g/dL Hct 40.2 (36-46) % MCV 88.9 (80-100) fL MCH 29.7 (26-34) PG MCHC 33.4 (30-36) % RDW 14.8 (11.6-14.8) % Plt Count 274 (150-400) X10^3/uL Neut % (Auto) 63.0 (50-75) % Lymph % (Auto) 26.7 (25-40) % [place] % (Auto) 7.3 (3-14) % Eos % (Auto) 1.9 L (2-4) % Baso % (Auto) 1.1 (0-2) % Neut # (Auto) 7400 H (4789-7797) /uL Lymph # (Auto) 3100 (4718-1859) /uL [place] # (Auto) 900 (0-900) /uL Eos # (Auto) 200 (0-450) /uL Baso # (Auto) 100 (0-100) /uL PT 13.0 H (9.4-12.5) SECONDS INR 1.1 (0.9-1.3) APTT 30 (25.1-36.5) SECONDS Sodium 139 (137-145) mmol/L Potassium 4.1 (3.4-5.1) mmol/L Chloride 105 (98-107) mmol/L Carbon Dioxide 27 (22-32) mmol/L BUN 19 H (7-17) mg/dL Creatinine 0.76 (0.52-1.04) mg/dL Estimated GFR > 60 (>60) mL/min BUN/Creatinine Ratio 25.0 H (6-22) Glucose 103 H (70-99) mg/dL Calcium 9.5 (8.4-10.2) mg/dL Total Bilirubin 1.1 (0.2-1.3) mg/dL AST 23 (14-36) IU/L ALT 13 (<35) IU/L Alkaline Phosphatase 97 (38-126) U/L Total Protein 8.0 (6.3-8.2) g/dL Albumin 4.2 (3.5-5.0) g/dL Globulin 3.8 (1.7-4.1) g/dL Albumin/Globulin Ratio 1.1 (1.0-2.8) Imaging Data CT scan - head: Radiologist's Impression: PROCEDURE: CT HEAD/BRAIN WO CON INDICATIONS: L sided nontraumatic JOE x 5 days TECHNIQUE: Noncontrast 4.5 mm thick angled axial sections acquired from the foramen magnum to the vertex, with coronal and sagittal reformats. For radiation dose reduction, the following was used: automated exposure control, adjustment of mA and/or kV according to patient size. COMPARISON: None. FINDINGS: Image quality: Diagnostic. CSF spaces: Basal cisterns are patent. No extra-axial fluid collections. The ventricles are symmetric in size and shape. Brain: No intracranial bleeds or mass effect. There is cerebral volume loss, with resultant ventricular and sulcal prominence. There are periventricular and deep white matter chronic small vessel ischemic changes. There is intracranial internal carotid artery atherosclerosis. Remote left MCA territory infarct with left frontal encephalomalacia/gliosis. Skull and face: Calvarium and visualized facial bones appear intact, without suspicious lesions. Sinuses: Visualized sinuses and mastoids are clear. IMPRESSION: No acute intracranial pathology. Remote left MCA territory infarct. Dictated by: Zeus aBrrett M.D. on 02/15/2025 at 12:01 Approved by: Zeus Barrett M.D. on 02/15/2025 at 12:02 CT - cervical spine: Radiologist's Impression: PROCEDURE: CT CERVICAL SPINE WO CON INDICATIONS: L sided JOE neck pain x 5 days TECHNIQUE: Noncontrast 3 mm thick sections acquired from the skull base to the T4 level. Sagittal and coronal reformats were then constructed. For radiation dose reduction, the following was used: automated exposure control, adjustment of mA and/or kV according to patient size. COMPARISON: None. FINDINGS: Image quality: Excellent. Bones: No fractures or dislocations. Visualized superior ribs are intact. Significant elongation of the styloid processes. Posterior decompression surgery at C1 and C2. Mild to moderate, multilevel degenerative disc disease and diffuse facet arthrosis. Soft tissues: Prevertebral soft tissues are normal in thickness. No paravertebral hematomas. No apical pneumothoraces. Small pleural effusions. IMPRESSION: No displaced fracture or traumatic subluxation. Significant elongation of the styloid processes, which may indicate [place] syndrome if symptomatic. Small pleural effusions of the lungs. Dictated by: Zeus Barrett M.D. on 02/15/2025 at 12:02 Approved by: Zeus Barrett M.D. on 02/15/2025 at 12:05 [facility] Narrative Medical decision making narrative: 84-year-old female with a past medical history of brain tumor removal 6 years ago, prior embolic stroke s/p embolectomy, HTN, AFib on Eliquis, CAD, pacemaker, hypothyroidism who presents to the emergency department with her daughter after being sent by the walk-in clinic for a headache x6 days. She does have history of right sided occipital neuralgia that was treated by pain management. Her niece contributes to the history. Differential diagnosis includes but is not limited to migraine, occipital neuralgia, cervical spondylosis, cervicogenic migraine, ICH, intracerebral mass, shingles, etc. On exam the patient is in no acute distress, nontoxic appearing, vital signs within normal limits, she is currently in AFib with normal rate. Physical exam reveals benign appearing maculopapular rash on the left arm, nonfocal neurologic exam with a baseline dysarthria from prior stroke. No temporal tenderness. Negative meningeal signs. Reproducible tenderness in the left paraspinal muscle region. Given patient's history, we will obtain CT head to rule out intracerebral abnormality, CT cervical spine to further evaluate for possible source of pain, check CBC CMP, coags and treat with gentle fluids 500 cc, Tylenol and Zofran and Lidoderm for pain at this time. 1215: CT cervical spine reveals no displaced fracture or traumatic subluxation. Patient does have significant elongation of styloid processes, which may indicate [place] syndrome if symptomatic. Small pleural effusions of the lungs. --> Fluids were stopped, she received 250cc. CT head reveals no acute intracranial pathology. Patient does have a remote left MCA territory infarct. Labs reveal slightly elevated WBC count 11.7, was 11.8 3 weeks ago. Normal hemoglobin 13.5 hematocrit 40.2. Coags appropriate. Sodium 139, potassium 4.1, BUN 19 creatinine 0.76. Glucose 103. Normal LFTs. Her pain did improve with Tylenol, Zofran, Lidoderm. Printed and discussed results with the patient and her niece at bedside. We further discussed patient's history of right-sided occipital neuralgia, patient states that what she is experiencing now is much less severe than what that was. Discussed CT findings of elongated styloid processes, [place] syndrome, and that this could be a big contributor to her pain. We will trial low-dose methocarbamol as well in the ED. Patient is not interested in any type of surgical intervention, I do think she would benefit from following up with the pain management for possible trigger point injections or other treatment. She does report severe allergy to morphine is unsure of other opioids are safe for her so we will avoid these at the time. I did originally order UA however patient declines and states she has not having any urinary symptoms. She is feeling better. Discussed the importance of follow up with PCP/pain management and also discussed strict ED return precautions with the patient and her niece. Discussed risks of muscle relaxers. Patient and her niece verbalized understanding of all information and are happy with the plan, patient is ambulatory and stable for discharge home. Discharge Plan Departure Patient Disposition: Home Clinical Impression: Headache, cervicogenic, Elongated styloid process syndrome Instructions: DI for Headache Activity Restrictions/Additional Instructions: Dear Ms. Santiago, Thank you for coming to the emergency department. Today you were evaluated for left-sided headache and neck pain. CT scan of your head revealed no brain bleeds or brain tumors, but it did show that the bones at the base of your skull are elongated which can cause pain. I would like you to follow up with your primary care doctor and pain management for further treatment of this. In the meantime you have been prescribed Zofran which is nausea medicine to take with Tylenol for pain, in addition to lidocaine patches for pain. You have also been prescribed methocarbamol/Robaxin which is a muscle relaxer that you can take at night for muscle spasms please be aware that this medication can make you drowsy and you need to be very careful while taking it. You can have another dose of Tylenol tonight around 6:00 p.m. if needed. Please follow up with your primary care doctor within the next 2-3 days for ER follow-up. (If you do not have a PCP you can call [phone]. ?to schedule an appointment with an [facility] Primary Care Provider) IF YOU DEVELOP ANY NEW OR WORSENING SYMPTOMS, RETURN TO THE ER! Please read the attached instructions, they highlight more specific treatments and interventions for you at home. Thank you for letting me participate in your care, Catherine Amaro PA-C Prescriptions: New ondansetron 4 mg tablet,disintegrating 4 mg PO Q8H PRN (Reason: nausea, headahce ) Qty: 14 0RF methocarbamol 500 mg tablet 500 mg PO BEDTIME PRN (Reason: muscle spasm) Qty: 5 0RF lidocaine [Lidoderm] 5 % adhesive patch,medicated 1 patch topical DAILY PRN (Reason: pain) Qty: 30 0RF Rx Instructions: leave on most painful area for up to 12 hrs No Action triamcinolone acetonide 0.1 % cream 1 applic topical BID Qty: 15 0RF levothyroxine 75 mcg tablet 75 mcg PO DAILY Qty: 90 1RF losartan 25 mg tablet 25 mg PO DAILY Qty: 90 1RF acetaminophen 325 mg capsule 325 mg PO Q4H MDD 3000 mg PRN (Reason: fever or pain) Qty: 270 2RF Rx Instructions: Take 2 capsules by mouth every 4 hours for pain. Do not exceed 9 caps/ max 3000mg in 24 hours diclofenac sodium [Voltaren Arthritis Pain] 1 % gel 2 g topical QID PRN (Reason: arthritis pain) Qty: 100 0RF Rx Instructions: Apply 2 g to each affected area up to 4 times daily; max total body dose (all combined joints): 32 g/day. MONITOR FOR ABNORMAL BLEEDING apixaban 2.5 mg tablet 2.5 mg PO BID Qty: 180 0RF metoprolol succinate 200 mg tablet extended release 24 hr 200 mg PO BID Qty: 180 0RF Rx Instructions: HOLD if BP under 100/60 or heart rate under 50 diltiazem HCl 120 mg capsule,extended release 24hr PO DAILY Referrals: Chepe Wood ARNP [Primary Care Provider, Medical] Stand Alone Forms: Patient Portal/API
--- NOTE | 2025-02-15 11:35 | DI.CT.S_ITS ---
PROCEDURE: CT HEAD/BRAIN WO CON INDICATIONS: L sided nontraumatic JOE x 5 days TECHNIQUE: Noncontrast 4.5 mm thick angled axial sections acquired from the foramen magnum to the vertex, with coronal and sagittal reformats. For radiation dose reduction, the following was used: automated exposure control, adjustment of mA and/or kV according to patient size. COMPARISON: None. FINDINGS: Image quality: Diagnostic. CSF spaces: Basal cisterns are patent. No extra-axial fluid collections. The ventricles are symmetric in size and shape. Brain: No intracranial bleeds or mass effect. There is cerebral volume loss, with resultant ventricular and sulcal prominence. There are periventricular and deep white matter chronic small vessel ischemic changes. There is intracranial internal carotid artery atherosclerosis. Remote left MCA territory infarct with left frontal encephalomalacia/gliosis. Skull and face: Calvarium and visualized facial bones appear intact, without suspicious lesions. Sinuses: Visualized sinuses and mastoids are clear. IMPRESSION: No acute intracranial pathology. Remote left MCA territory infarct. Dictated by: Zeus Barrett M.D. on 02/15/2025 at 12:01 Approved by: Zeus Barrett M.D. on 02/15/2025 at 12:02
--- NOTE | 2025-02-15 11:35 | DI.CT.S_ITS ---
PROCEDURE: CT CERVICAL SPINE WO CON INDICATIONS: L sided JOE neck pain x 5 days TECHNIQUE: Noncontrast 3 mm thick sections acquired from the skull base to the T4 level. Sagittal and coronal reformats were then constructed. For radiation dose reduction, the following was used: automated exposure control, adjustment of mA and/or kV according to patient size. COMPARISON: None. FINDINGS: Image quality: Excellent. Bones: No fractures or dislocations. Visualized superior ribs are intact. Significant elongation of the styloid processes. Posterior decompression surgery at C1 and C2. Mild to moderate, multilevel degenerative disc disease and diffuse facet arthrosis. Soft tissues: Prevertebral soft tissues are normal in thickness. No paravertebral hematomas. No apical pneumothoraces. Small pleural effusions. IMPRESSION: No displaced fracture or traumatic subluxation. Significant elongation of the styloid processes, which may indicate [place] syndrome if symptomatic. Small pleural effusions of the lungs. Dictated by: Zeus Barrett M.D. on 02/15/2025 at 12:02 Approved by: Zeus Barrett M.D. on 02/15/2025 at 12:05
[2025-02-15] MEDS: ONDANSETRON 4 MG/2 ML INJ IV (11:48)
[2025-02-15] MEDS: LIDOCAINE 5% PATCH 1 EACH TOP (11:48)
[2025-02-15] MEDS: SODIUM CHLORIDE 0.9% 500 ML 1000 ML IV (11:49)
[2025-02-15] MEDS: ACETAMINOPHEN IV 1,000 MG/100 ML VIAL 400 MG IV (11:54)
[2025-02-15 12:05] LABS: Add Manual Diff / Slide Review NO; Hematocrit 40.2 % (36-46); Hemoglobin 13.5 g/dL (12.0-16.0); Lymphocytes Absolute Auto 3100 /uL (1100-4500); Mean Corpuscular HGB Conc 33.4 % (30-36); Mean Corpuscular Hemoglobin 29.7 PG (26-34); Mean Corpuscular Volume 88.9 fL (80-100); Platelet Count 274 X10^3/uL (150-400)
[2025-02-15 12:17] LABS: INR 1.1 (0.9-1.3); Prothrombin Time 13.0 SECONDS (9.4-12.5)
[2025-02-15 12:19] LABS: PTT Partial Thromboplastin Tim 30 SECONDS (25.1-36.5)
[2025-02-15 12:20] LABS: Alanine Aminotransferase 13 IU/L (<35); Albumin 4.2 g/dL (3.5-5.0); Albumin Globulin Ratio 1.1 (1.0-2.8); Alkaline Phosphatase 97 U/L (38-126); Blood Urea Nitrogen 19 mg/dL (7-17); Calcium 9.5 mg/dL (8.4-10.2); Carbon Dioxide 27 mmol/L (22-32); Chloride 105 mmol/L (98-107); Estimated Glomerular Filt Rate > 60 mL/min (>60); Globulin 3.8 g/dL (1.7-4.1); Glucose 103 mg/dL (70-99); HEMOLYSIS < 15 (0-50); Potassium 4.1 mmol/L (3.4-5.1); Sodium 139 mmol/L (137-145); Total Protein 8.0 g/dL (6.3-8.2)
[2025-02-15 12:54] VITALS: BP 135/72; PULSE 65; RESP 16; TEMP 36.8; O2SAT 96
== END 2025-02-15 12:54 | disposition home or self-care (01) ==
PROVIDERS: Emergency Provider Physician Assistant; PCP Registered Nurse Diabetes Educator
DX: G44.86 Cervicogenic headache (principal); M89.8X8 Other specified disorders of bone, other site; I10 Essential (primary) hypertension; Z79.01 Long term (current) use of anticoagulants; Z95.0 Presence of cardiac pacemaker
CPT/HCPCS: 36415; 70450; 72125; 80053; 85025; 85610; 85730; 96365; 96375; 99284; J0131; J2405

== ENCOUNTER 2025-04-01 11:27 | Emergency (ER) | payer MEDICARE, SELFPAY ==
[2025-04-01 11:37] VITALS: BP 153/70; PULSE 77; RESP 18; TEMP 36.9; O2SAT 96; BMI 22.1
--- NOTE | 2025-04-01 12:04 | ED_ITS ---
HPI - Extremity Problem <Catherine Amaro PA-C - Last Filed: 04/01/25 14:54> General Chief complaint: Extremity Problem,Nontraumatic Stated complaint: left knee pain 4 days Time Seen by Provider: 04/01/25 11:51 Source: patient Mode of arrival: Ambulatory History of Present Illness HPI Narrative: Ms. Santiago is a very pleasant 84-year-old female with a past medical history of brain tumor s/p removed 6 years ago, prior embolic stroke SP embolectomy, HTN, AFib on Eliquis, CAD, pacemaker, hypothyroidism who presents to the emergency department from her assisted living at [facility] for right knee pain x4 days. Patient states that she does have a history of arthritis and deals with knee pain chronically however a few days ago it got much worse and the like also got more swollen. She thinks she may have twisted it but there was no fall or direct trauma. No numbness tingling or weakness. No fevers, chills, chest pain, shortness of breath or any other concerns. She is here alone today but her daughter did call and check in on her, confirms baseline word finding difficulty. Related Data Home Medications ?Medication ?Instructions ?Recorded ?Confirmed diltiazem HCl 120 mg mg PO DAILY 08/21/24 5 capsule,extended release 24 hr Previous Rx's ?Medication ?Instructions ?Recorded acetaminophen 325 mg capsule 325 mg PO Q4H PRN fever o r pain 10/30/24 #270 caps methocarbamol 500 mg tablet 500 mg PO BEDTIME PRN musc le spasm 02/15/25 #5 tabs ondansetron 4 mg disintegrating 4 mg PO Q8H PRN nausea , headahce 02/15/25 tablet #14 tabs triamcinolone acetonide 0.1 % 1 applic topical BID #15 grams 02/15/25 topical cream sennosides 8.6 mg tablet 17.2 mg (2 x 8.6 mg) PO BEDT KARINA 03/06/25 PRN constipation #60 tabs apixaban 2.5 mg tablet 2.5 mg PO BID #180 tabs 10/02 diclofenac sodium 1 % topical gel 2 g topical QID PRN arthritis pain 03/13/25 (Voltaren Arthritis Pain) #100 grams levothyroxine 75 mcg tablet 75 mcg PO DAILY #90 tabs 0 03/13/25 lidocaine 5 % topical patch 1 patch topical DAILY PRN pain #30 03/13/25 (Lidoderm) ea losartan 25 mg tablet 25 mg PO DAILY #90 tabs 10/02 metoprolol succinate 200 mg 200 mg PO BID #180 tabs tablet,extended release 24 hr tramadol 50 mg tablet 50 mg PO BID PRN pain, sever e #30 03/13/25 tabs Allergies Allergy/AdvReac Type Severity Reaction Status Date / Time ciprofloxacin (From Cipro) Allergy Severe cardiac Verified 04/01/25 11:42 arrest morphine Allergy Severe cardiac Verified 04/01/25 11:42 arrest lisinopril Allergy Mild Cough Verified 04/01/25 11:42 Review of Systems <Catherine Amaro PA-C - Last Filed: 04/01/25 14:54> Review of Systems ROS Unobtainable: All systems reviewed & are unremarkable except as noted in HPI and below Patient History <Catherine Amaro PA-C - Last Filed: 04/01/25 14:54> Medical History Sick sinus syndrome Primary osteoarthritis of left knee Degenerative joint disease of wrist Ganglion cyst of dorsum of left wrist Chronic anticoagulation Expressive aphasia Lower extremity weakness History of embolic stroke Occipital neuralgia of right side Myofascial pain Neck Pain Cervical spondylosis History of benign spinal cord tumor Pacemaker Hypertension Hypothyroid Atrial fibrillation Surgical History History of embolectomy tobacco type: cigarettes Exam <Catherine Amaro PA-C - Last Filed: 04/01/25 14:54> Narrative Exam Narrative: GENERAL: 84 year old patient appears stated age. Well-developed patient, in no acute distress. HEAD: Atraumatic. Normocephalic. EYES: No scleral icterus. No injection or drainage. NECK: Trachea midline. Cervical ROM intact. CARDIOVASCULAR: Regular rate and irregular rhythm. RESPIRATORY: ?Nonlabored respirations. ?Speaking in clear, full sentences. ? EXTREMITIES: 2+ RLE edema, no left LE edema. Tenderness to palpation of anterior mid tibia and anterior right knee. No focal medial or lateral malleolus tenderness. DP and PT pulse detected with Doppler on right lower extremity, foot is warm and well perfused. Dp & PT palpabale LLE. No lower extremity erythema, increased warmth or rashes. NEURO: Slow speech with some word-finding difficulty, reported baseline. Patient is alert and oriented, able to answer questions. Ambulates with a Rollator walker. SKIN: No rash or erythema of visible areas Initial Vital Signs Initial Vital Signs: Vital Signs Temperature 98.4 F 04/01/25 11:37 Pulse Rate 77 04/01/25 11:37 Respiratory Rate 18 04/01/25 11:37 Blood Pressure 153/70 H 04/01/25 11:37 Pulse Oximetry 96 04/01/25 11:37 Oxygen Delivery Method Room Air 04/01/25 11:37 <Noemí Giordano DO - Last Filed: 04/01/25 15:42> Initial Vital Signs Initial Vital Signs: Vital Signs Temperature 98.4 F 04/01/25 11:37 Pulse Rate 77 04/01/25 11:37 Respiratory Rate 18 04/01/25 11:37 Blood Pressure 153/70 H 04/01/25 11:37 Pulse Oximetry 96 04/01/25 11:37 Oxygen Delivery Method Room Air 04/01/25 11:37 Course <Catherine Amaro PA-C - Last Filed: 04/01/25 14:54> Orders Ordered: ED Orders 04/01/25 12:18 US periph venous low extrem rt Stat XR knee RT 3V Stat XR tibia fibula RT 2V Stat Vital Signs Vital signs: Vital Signs - 8 hr 04/01/25 11:37 04/01/25 14:10 Temperature 98.4 F Pulse Rate 77 87 Respiratory Rate 18 16 Blood Pressure 153/70 H 159/72 H Pulse Oximetry 96 97 Oxygen Delivery Method Room Air Room Air <Noemí Giordano DO - Last Filed: 04/01/25 15:42> Orders Ordered: ED Orders 04/01/25 12:18 US periph venous low extrem rt Stat XR knee RT 3V Stat XR tibia fibula RT 2V Stat Vital Signs Vital signs: Vital Signs - 8 hr 04/01/25 11:37 04/01/25 14:10 Temperature 98.4 F Pulse Rate 77 87 Respiratory Rate 18 16 Blood Pressure 153/70 H 159/72 H Pulse Oximetry 96 97 Oxygen Delivery Method Room Air Room Air [facility] Extremity (Nontraumatic) <Catherine Amaro PA-C - Last Filed: 04/01/25 14:54> Medical Records Attestation: I reviewed the patient's medical records. Imaging Data Right Knee XR: Radiologist's Impression: PROCEDURE: XR KNEE RT 3V INDICATIONS: R knee and owen pain; arthritis? effusion? TECHNIQUE: 3 views of the knee were acquired. COMPARISON: [facility], CR, XR KNEE LT 3V, 12/27/2024, 7:50. [facility], CR, XR KNEE LT 3V, 09/12/2024, 17:31. FINDINGS: Bones: No fractures or dislocations. Degenerative changes with joint space narrowing and osteophytosis, moderate involving the medial compartment. No suspicious bony lesions. Soft tissues: Moderate joint effusion. No suspicious soft tissue calcifications. Atherosclerotic vascular calcifications. IMPRESSION: Moderate osteoarthritic changes. Moderate joint effusion. No acute fractures are seen. Dictated by: Liang Recio M.D. on 04/01/2025 at 12:50 Approved by: Liang Recio M.D. on 04/01/2025 at 12:52 RLE Venous US: Radiologist's Impression: PROCEDURE: US PERIPH VENOUS LOW EXTREM RT INDICATIONS: unilateral swelling; pain; concern DVT TECHNIQUE: Real-time imaging, as well as color and pulse Doppler interrogation, were performed of the lower extremity deep veins from the inguinal ligament to the popliteal fossa, with documentation of the visualized calf veins. COMPARISON: [facility], CR, XR KNEE RT 3V, 04/01/2025, 12:14. [facility], CR, XR TIBIA FIBULA RT 2V, 04/01/2025, 12:14. FINDINGS: The common femoral, femoral, popliteal, and the visualized calf veins are normally compressible, and free of intraluminal thrombus. Color and pulse Doppler demonstrate normal phasic intraluminal flow. There is normal augmentation response to distal compression maneuver. IMPRESSION: No findings of lower extremity deep venous thrombosis. Dictated by: Harinder Bhardwaj M.D. on 04/01/2025 at 12:12 Approved by: Harinder Bhardwaj M.D. on 04/01/2025 at 12:12 [facility] Narrative Medical decision making narrative: 84-year-old female with a past medical history of brain tumor s/p removed 6 years ago, prior embolic stroke SP embolectomy, HTN, AFib on Eliquis, CAD, pacemaker, hypothyroidism who presents to the emergency department from her assisted living at [facility] for right knee pain x4 days. Differential diagnosis includes but is not limited to right lower extremity DVT, SVT, arthritis, effusion, etc. On exam patient is in no acute distress, nontoxic-appearing, all vital signs within normal limits. She is 2+ pitting edema of the right lower extremity, she is neurovascularly intact with Doppler detected pulses, foot is warm and well perfused, sensation intact to light touch. She ambulates with a Rollator walker. We will obtain right lower extremity x-ray imaging and ultrasound. Patient declines need for additional pain medication at this time. Imaging reveals no DVT, x-ray does reveal moderate osteoarthritis of the knee and effusion. Patient's right knee was placed into an Wade wrap, recommended rice therapy, topical Voltaren cream, Tylenol for pain, and follow up with Orthopedics for further management. Patient verbalized understanding all information, imaging results were printed and discussed with her at the bedside. All questions answered, she is ambulatory and stable for discharge home back to [facility]. Discharge Plan Departure Patient Disposition: Home Clinical Impression: Effusion, right knee Osteoarthritis of right knee Qualifiers: Osteoarthritis type: unspecified Qualified Code(s): M17.11 - Unilateral primary osteoarthritis, right knee Instructions: DI for Knee Effusion Activity Restrictions/Additional Instructions: Dear aPmela, Thank you for coming to the emergency department. Today you were evaluated for right knee pain and leg swelling. Your ultrasound revealed no blood clot. Your x-ray did reveal osteoarthritis of the knee and a knee effusion. Please use RICE therapy for your pain in addition to acetaminophen and topical voltaren cream. Rest the painful area. Ice the area of pain/swelling for at least 15 minutes, 4x a day. Compress the area of swelling using a brace, wrap, or splint if applied. Elevate the painful or swollen extremity by supporting it above the level of the heart with pillows when sitting or laying. Please call to schedule an appointment with your primary care doctor and/or [facility] for further management. Please follow up with your primary care doctor within the next 2-3 days for ER follow-up. (If you do not have a PCP you can call [phone]. ?to schedule an appointment with an [facility] Primary Care Provider) IF YOU DEVELOP ANY NEW OR WORSENING SYMPTOMS, RETURN TO THE ER! Please read the attached instructions, they highlight more specific treatments and interventions for you at home. Thank you for letting me participate in your care, Catherine Amaro PA-C Prescriptions: No Action triamcinolone acetonide 0.1 % cream 1 applic topical BID Qty: 15 0RF acetaminophen 325 mg capsule 325 mg PO Q4H MDD 3000 mg PRN (Reason: fever or pain) Qty: 270 2RF Rx Instructions: Take 2 capsules by mouth every 4 hours for pain. Do not exceed 9 caps/ max 3000mg in 24 hours sennosides 8.6 mg tablet 17.2 mg PO BEDTIME PRN (Reason: constipation) Qty: 60 2RF diltiazem HCl 120 mg capsule,extended release 24hr PO DAILY levothyroxine 75 mcg tablet 75 mcg PO DAILY Qty: 90 2RF apixaban 2.5 mg tablet 2.5 mg PO BID Qty: 180 1RF diclofenac sodium [Voltaren Arthritis Pain] 1 % gel 2 g topical QID PRN (Reason: arthritis pain) Qty: 100 1RF Rx Instructions: Apply 2 g to each affected area up to 4 times daily; max total body dose (all combined joints): 32 g/day. MONITOR FOR ABNORMAL BLEEDING losartan 25 mg tablet 25 mg PO DAILY Qty: 90 1RF metoprolol succinate 200 mg tablet extended release 24 hr 200 mg PO BID Qty: 180 1RF Rx Instructions: HOLD if BP under 100/60 or heart rate under 50 lidocaine [Lidoderm] 5 % adhesive patch,medicated 1 patch topical DAILY PRN (Reason: pain) Qty: 30 0RF Rx Instructions: leave on most painful area for up to 12 hrs tramadol 50 mg tablet 50 mg PO BID PRN (Reason: pain, severe) Qty: 30 0RF Rx Instructions: MAY BE SEDATING; PLEASE TAKE PRECAUTIONS TO AVOID FALLING ondansetron 4 mg tablet,disintegrating 4 mg PO Q8H PRN (Reason: nausea, headahce ) Qty: 14 0RF methocarbamol 500 mg tablet 500 mg PO BEDTIME PRN (Reason: muscle spasm) Qty: 5 0RF Referrals: Katharina Daniels DO [Physician, Orthopedic Surgery] Referral Note: osteoarthritis Chepe Wood ARNP [Primary Care Provider, Medical] Stand Alone Forms: Patient Portal/API ED Sign-out <Noemí Giordano DO - Last Filed: 04/01/25 15:42> Cosign ED Attending Cosignature Attestation: I was immediately available in the department for consultation.
--- NOTE | 2025-04-01 12:08 | PC.NURSE ---
Daughter, Estefani Valera, calls to checks on mother. Patient states OK to update daughter on her health. Daughter Estefani reports history of stroke about 1 year ago with changes in speech which is normal for patient. Reports chronic pain with RIGHT knee and has had multiple cortisone shots. Provider Prem made aware.
--- NOTE | 2025-04-01 12:18 | DI.RAD.S_ITS ---
PROCEDURE: XR TIBIA FUBULA RT 2V INDICATIONS: diffuse RLE pain TECHNIQUE: 2 views of the tibia and fibula were acquired. COMPARISON: None. FINDINGS: Bones: No fractures or dislocations. No suspicious bony lesions. Soft tissues: No suspicious soft tissue calcifications or masses. Atherosclerotic vascular calcifications. IMPRESSION: No acute osseous abnormality. If pain persists with conservative management, consider repeat x-ray in 10-14 days or cross-sectional imaging. Dictated by: Liang Recio M.D. on 04/01/2025 at 12:53 Approved by: Liang Recio M.D. on 04/01/2025 at 12:53
--- NOTE | 2025-04-01 12:18 | DI.RAD.S_ITS ---
PROCEDURE: XR KNEE RT 3V INDICATIONS: R knee and owen pain; arthritis? effusion? TECHNIQUE: 3 views of the knee were acquired. COMPARISON: [facility], CR, XR KNEE LT 3V, 12/27/2024, 7:50. [facility], CR, XR KNEE LT 3V, 09/12/2024, 17:31. FINDINGS: Bones: No fractures or dislocations. Degenerative changes with joint space narrowing and osteophytosis, moderate involving the medial compartment. No suspicious bony lesions. Soft tissues: Moderate joint effusion. No suspicious soft tissue calcifications. Atherosclerotic vascular calcifications. IMPRESSION: Moderate osteoarthritic changes. Moderate joint effusion. No acute fractures are seen. Dictated by: Liang Recio M.D. on 04/01/2025 at 12:50 Approved by: Liang Recio M.D. on 04/01/2025 at 12:52
--- NOTE | 2025-04-01 12:18 | DI.US.S_ITS ---
PROCEDURE: US PERIPH VENOUS LOW EXTREM RT INDICATIONS: unilateral swelling; pain; concern DVT TECHNIQUE: Real-time imaging, as well as color and pulse Doppler interrogation, were performed of the lower extremity deep veins from the inguinal ligament to the popliteal fossa, with documentation of the visualized calf veins. COMPARISON: [facility], CR, XR KNEE RT 3V, 04/01/2025, 12:14. [facility], CR, XR TIBIA FIBULA RT 2V, 04/01/2025, 12:14. FINDINGS: The common femoral, femoral, popliteal, and the visualized calf veins are normally compressible, and free of intraluminal thrombus. Color and pulse Doppler demonstrate normal phasic intraluminal flow. There is normal augmentation response to distal compression maneuver. IMPRESSION: No findings of lower extremity deep venous thrombosis. Dictated by: Harinder Bhardwaj M.D. on 04/01/2025 at 12:12 Approved by: Harinder Bhardwaj M.D. on 04/01/2025 at 12:12
[2025-04-01 14:10] VITALS: BP 159/72; PULSE 87; RESP 16; O2SAT 97
== END 2025-04-01 14:07 | disposition home or self-care (01) ==
PROVIDERS: Emergency Provider Physician Assistant; PCP Registered Nurse Diabetes Educator
DX: M25.461 Effusion, right knee (principal); M17.11 Unilateral primary osteoarthritis, right knee; Z86.79 Personal history of other diseases of the circulatory system; Z95.0 Presence of cardiac pacemaker; Z79.01 Long term (current) use of anticoagulants
CPT/HCPCS: 73562; 73590; 93971; 99281; 99283

== ENCOUNTER → 2025-05-22 13:08 | Outpatient (CLI) | payer MEDICARE, SELFPAY | PROVIDERS: PCP Registered Nurse Diabetes Educator; Visit Provider Nurse Practitioner Family | DX: R39.15 Urgency of urination (principal) | CPT/HCPCS: 87077; 87086 ==